=== PATIENT | male | born 1955 | race Caucasian/White ===

== ENCOUNTER → 2020-05-09 08:19 | Outpatient (BNVA) | payer OTHER, SELFPAY | PROVIDERS: PCP Internal Medicine; Visit Provider Physician Assistant | DX: Z76.89 Persons encountering health services in other specified circumstances (principal) ==

== ENCOUNTER 2020-07-18 10:25 | Day surgery (SDC) | payer OTHER, SELFPAY ==
[2020-07-12 13:21] VITALS: BMI 28.4
--- NOTE | 2020-07-17 08:29 | HO.ANESPROP2 ---
Documented by User: Adamaris Freeman 07/17/20 08:38 HPI - Anesthesia Eval Consult details Narrative: 64yo M for Colonoscopy PMFSH Active Problems Active Problems: All Active Problems (Updated 07/12/20 @ 13:18 by Esther Echevarria) Mild asthma (Acute) Diabetes (Acute) HTN (hypertension) (Acute) Encounter for screening colonoscopy (Acute) Past Medical History Medical History Diabetes Encounter for screening colonoscopy HTN (hypertension) Mild asthma Family History Family History Father CVD (cardiovascular disease) Mother Pulmonary edema Sister Breast cancer Diabetes CVD (cardiovascular disease) Hypertension Surgical History Surgical History History of tonsillectomy Hx laparoscopic cholecystectomy Social History Social History Household Members: Spouse Alcohol intake: never Smoking Status: Never smoker Use of substances other than those prescribed or required for medical reasons: No Advance Directives: No Advance Directives Information Provided: No Advance Directives on File: No Current occupational status: disabled Meds Allergies Allergy/AdvReac Type Severity Reaction Status Date / Time enalapril [ENALAPRIL] Allergy Intermediate chills, Verified 05/27/20 09:14 asthma exacerbation Home Medications Medication Instructions Recorded Confirmed Last Taken Type amlodipine 10 mg tablet 10 mg PO DAILY 05/09/20 07/12/20 Unknown History losartan 25 mg tablet 25 mg PO DAILY 05/09/20 05/27/20 Unknown History albuterol sulfate 90 mcg/actuation 2 puff INHALATION Q6H PRN 05/27/20 07/12/20 Unknown History aerosol inhaler Exam Exam Date and Time: July 17, 2020 0829 Height,Weight and Vital Signs: Height 5 ft 11 in Weight 92.533 kg Assessment and Plan Assessment Anesthesia Assessment: Chart Reviewed Documented by User: Zach Valdez 07/18/20 11:11 COUNTS INCLUDE 234 BEDS AT THE [facility] Past Medical History Medical History Diabetes Encounter for screening colonoscopy HTN (hypertension) Mild asthma Family History Family History Father CVD (cardiovascular disease) Mother Pulmonary edema Sister Breast cancer Diabetes CVD (cardiovascular disease) Hypertension Surgical History Surgical History History of tonsillectomy Hx laparoscopic cholecystectomy Social History Social History Household Members: Spouse Alcohol intake: never Smoking Status: Never smoker Use of substances other than those prescribed or required for medical reasons: No Advance Directives: No Advance Directives Information Provided: No Advance Directives on File: No Current occupational status: disabled Meds Allergies Allergy/AdvReac Type Severity Reaction Status Date / Time enalapril [ENALAPRIL] Allergy Intermediate chills, Verified 05/27/20 09:14 asthma exacerbation Home Medications Medication Instructions Recorded Confirmed Last Taken Type amlodipine 10 mg tablet 10 mg PO DAILY 05/09/20 07/12/20 Unknown History losartan 25 mg tablet 25 mg PO DAILY 05/09/20 05/27/20 Unknown History albuterol sulfate 90 mcg/actuation 2 puff INHALATION Q6H PRN 05/27/20 07/12/20 Unknown History aerosol inhaler Exam Airway Mallampati Class: II TM Dist: >3cm Neck ROM: Full Partial: Upper
[2020-07-18 11:18] LABS: Glucose, Whole Blood 141 mg/dL (60-115)
[2020-07-18 11:22] VITALS: BP 169/86; PULSE 87; RESP 18; TEMP 36.8; O2SAT 98
[2020-07-18] MEDS: Lactated Ringers 1,000 ML 100 ML IVCONT (11:28)
--- NOTE | 2020-07-18 11:31 | P.HPSUR_ITS ---
Pre-Procedural Eval Section B Chief Complaint: screening Relevant Family History (Specify if Yes): No Relevant Social History: None Present Medications: see Short Stay Collaborative assessment Medical History: Significant History (Diabetes Encounter for screening colonoscopy HTN (hypertension) Mild asthma) History of Previous Operations: Relevant previous surgery/procedure and date(s) (lap cholecystectomy) Allergies: Allergies Allergy/AdvReac Type Severity Reaction Status Date / Time enalapril [ENALAPRIL] Allergy Intermediate chills, Verified 05/27/20 09:14 asthma exacerbation Review of Systems Sugical H&P ROS: Negative: Constitution, Cardiovascular, Respiratory, Edin rological, Psychiatric, Hem-Onc, Allergic/Immunologic, Gastrointestinal, Genitourinary, Musculoskeletal, Integumentary, Endocrine and Eyes/Ears/Nose/Throat Exam Surgical H&P Exam: Normal: HEENT, Normal: Heart, Normal: Lungs, Normal: Extremities, Normal: Abdomen, Normal: Skin and Normal: Neurological Plan Diagnosis/Plan: Unchanged I have reviewed the history and physical and performed a pertinent physical examination on my patient. No changes have occurred unless specified.
--- NOTE | 2020-07-18 12:11 | PM.OP ---
Brief Operative Note Date of Service: 07/18/20 Pre-op diagnosis: colon screen Post-op diagnosis: same Procedure: see op note Surgeon: Bala Crystal MD Anesthesia: MAC Estimated blood loss (mL): 0 Condition: stable Disposition: PACU
--- NOTE | 2020-07-18 12:12 | P.OP_ITS ---
Operative Note Operative Note Date of Service: 07/18/20 Narrative: Operative Information Procedure Description: Colonoscopy COLONOSCOPY Instrument: Olympus variable stiffness pediatric scope 190L Colonoscopy Monitoring: Vital signs and clinical assessment, continuous EKG monitoring, Pulse oximetry, Carbon Dioxide monitoring and blood pressure monitoring were done throughout the procedure. Colon withdrawal time was 11 minutes. Procedure: The patient was placed in the left lateral decubitis position and pre-procedure medications were administered. After a digital rectal examination of the ano-rectum, the video colonoscope was inserted into the rectum and advanced through the colon to the cecum/TI. The colonoscope was slowly withdrawn in a retrograde panoramic fashion and the colon mucosa was carefully examined including a retroflexed view of the rectum. Findings and interventions are described below. Procedure Difficulty:easy Findings: Terminal Ileum- mild erosive ileitis noted, bx taken Cecum:normal, bx taken Ascending Colon: normal, bx taken Transverse Colon -normal Descending Colon:normal Sigmoid Colon: normal Rectum: Retroflexion with small internal hemorrhoids, grade II Anorectum - internal hemorrhoids seen at anal verge Colon preparation: [employer] Bowel Preparation Scale Right colon; 2 Transverse colon: 3 Left colon; 3 (0 = Unprepared colon segment with mucosa not seen due to solid stool that cannot be cleared. 1 = Portion of mucosa of the colon segment seen, but other areas of the colon segment not well seen due to staining, residual stool and/or opaque liquid. 2 = Minor amount of residual staining, small fragments of stool and/or opaque liquid, but mucosa of colon segment seen well. 3 = Entire mucosa of colon segment seen well with no residual staining, small fragments of stool or opaque liquid) Impression and Post Procedure Diagnosis: internal hemorrhoids terminal ileitis, erosions Plan: High fiber diet leaflet Avoid straining at stool, epsom salts and sitz bath, anusol supps or cream prn Repeat Colonoscopy in 10 years or earlier if clinically indicated check for any sx of crohns, nsaid use, may need further tests incl CTe etc Above findings were reviewed with the patient and relevant handouts were provided if indicated.
[2020-07-18 12:18] VITALS: BP 108/63; PULSE 86; RESP 20; TEMP 37.1; O2SAT 98
[2020-07-18 12:33] VITALS: BP 118/71; PULSE 84; RESP 20; O2SAT 97
[2020-07-18 12:48] VITALS: BP 125/72; PULSE 82; RESP 18; TEMP 37; O2SAT 99
== END 2020-07-18 13:14 | disposition home or self-care (01) ==
PROVIDERS: PCP Internal Medicine; Visit Provider Internal Medicine Gastroenterology
PROC: 0DJD8ZZ Inspection of Lower Intestinal Tract, Via Natural or Artificial Opening Endoscopic (ICD-10-PCS; CPT 45378; principal; 2020-07-18 11:50)
DX: Z12.11 Encounter for screening for malignant neoplasm of colon (principal); K50.00 Crohn's disease of small intestine without complications; K64.1 Second degree hemorrhoids; I10 Essential (primary) hypertension; E11.9 Type 2 diabetes mellitus without complications; J45.909 Unspecified asthma, uncomplicated; Z90.49 Acquired absence of other specified parts of digestive tract; Z79.84 Long term (current) use of oral hypoglycemic drugs; Z79.899 Other long term (current) drug therapy; Z88.8 Allergy status to other drugs, medicaments and biological substances
CPT/HCPCS: 45380; 82947; 88305; J3010

== ENCOUNTER → 2020-07-25 13:04 | Outpatient (BNVA) | payer OTHER, SELFPAY | PROVIDERS: PCP Internal Medicine; Visit Provider Physician Assistant ==

== ENCOUNTER → 2020-08-26 10:35 | Outpatient (BNVA) | payer OTHER, SELFPAY | PROVIDERS: PCP Internal Medicine; Visit Provider Internal Medicine Gastroenterology ==

== ENCOUNTER → 2020-12-30 10:06 | Outpatient (BNVA) | payer OTHER, SELFPAY | PROVIDERS: PCP Internal Medicine; Visit Provider Internal Medicine Gastroenterology ==

== ENCOUNTER 2021-06-11 17:39 | Outpatient (REF) | payer OTHER, SELFPAY ==
[2021-06-11 17:44] LABS: Appearance Urine CLEAR; Color Urine YELLOW; Glucose Urine UA 500 MG/DL (NEG); Leukocyte Esterase Urine NEG (NEG); Nitrite Urine NEG (NEG); PH 6.5 (5.0-8.0); Urine Blood NEG (NEG); Urine Ketones NEG (NEG); Urine Protein NEG (NEG-TRACE)
== END 2021-06-11 17:40 | disposition home or self-care (01) ==
LOC: HO.LNP 17:39
PROVIDERS: Visit Provider Physician Assistant
DX: R10.2 Pelvic and perineal pain (principal); L29.8 Other pruritus; B35.6 Tinea cruris
CPT/HCPCS: 81003

== ENCOUNTER 2021-08-13 08:29 | Outpatient (REF) | payer OTHER, SELFPAY ==
[2021-08-13 08:41] LABS: MANUAL DIFF FLAG NO
[2021-08-13 09:01] LABS: Basophils Absolute Auto 0.1 X10*3/uL (0.0-0.2); Basophils Percent Auto 0.8 % (0-2); Eosinophils Absolute Auto 0.5 X10*3/uL (0.0-0.4); Eosinophils Percent Auto 4.4 % (0-4); Hematocrit 48.3 % (42.0-52.0); Hemoglobin 15.8 g/dl (14.0-18.0); Imm Gran Abs Auto 0.09 X10*3/uL (0.00-0.03); Imm Gran Pct Auto 0.7 % (0.0-0.4); Lymphocytes Absolute Auto 4.1 X10*3/uL (1.2-4.9); Lymphocytes Percent Auto 33.7 % (20-40); Mean Corpuscular HGB Conc 32.7 g/dl (31.0-36.0); Mean Corpuscular Hemoglobin 26.6 pg (27.0-33.0); Mean Corpuscular Volume 81.5 fL (80.0-98.0); Mean Platelet Volume 11.4 fL (9.4-12.4); Monocytes Absolute Auto 0.9 X10*3/uL (0.1-1.2); Monocytes Percent Auto 7.6 % (2-11); Neutrophils Absolute Auto 6.5 x10*3/uL (2.0-8.3); Neutrophils Percent Auto 52.8 % (45-73); Platelet Count 218 X10*3/uL (160-400); Red Blood Count 5.93 X10*6/uL (4.60-5.80); Red Cell Distribution Width 12.5 % (11.0-16.0); White Blood Count 12.3 X10*3/uL (4.8-10.8)
[2021-08-13 09:09] LABS: INTERNATIONAL NORM RATIO 0.9 (0.9-1.1); Prothrombin Time 10.2 SEC (9.9-13.0)
[2021-08-13 09:25] LABS: Alanine Aminotransferase 58 U/L (0-40); Albumin Level 4.3 g/dL (3.5-5.0); Alkaline Phosphatase 77 U/L (39-117); Anion Gap 14 (12-20); Aspartate Amino Transferase 24 U/L (5-37); Bilirubin Total 0.8 mg/dL (0.0-1.0); Blood Urea Nitrogen 19 mg/dL (9-16); Calcium 9.5 mg/dL (8.4-10.2); Carbon Dioxide 27 mmol/L (22-29); Chloride 102 mmol/L (96-108); Estimated Glomerular Filt Rate 58; Glucose Random 192 mg/dL (60-115); Iron 70 mcg/dL (45-160); Percent Iron Saturation 26 % (15-50); Potassium 4.1 mmol/L (3.3-5.1); Sodium 139 mmol/L (135-145); Total Iron Binding Capacity 265 mcg/dL (228-428); Total Protein 7.5 g/dL (6.5-8.0); Unsaturated Iron Binding 195 ug/dL
[2021-08-13 09:46] LABS: Ferritin 501 ng/mL (20-250)
[2021-08-13 09:47] LABS: HBS Num1 0.07 mIU/mL (0-7.99); HBc Num1 0.07 S/CO (0.00-0.79); Hepatitis B Core Antibody Nonreactive (Nonreactive); ~HepC Num1 0.08 S/CO (0.00-0.79); ~Hepatitis B Surface Antibody NONREACTIVE (Nonreactive); ~Hepatitis C Antibody Nonreactive (Nonreactive)
[2021-08-13 09:59] LABS: HBsAGNum1 0.24 S/CO (0.00-0.99); Hepatitis B Surface Antigen Negative (Negative)
[2021-08-14 13:41] LABS: Anti Nuclear Antibody Screen NEGATIVE (NEGATIVE)
[2021-08-15 08:57] LABS: Hepatitis A Antibody IgM 0.32 Index (0-0.79); ~Hepatitis A Antibody IgM Nonreactive (Nonreactive)
[2021-08-15 11:32] LABS: Alpha 1 Anti-trypsin 129 mg/dL (83-199); Ceruloplasmin 20 mg/dL (18-36)
[2021-08-15 13:32] LABS: Immunoglobulin G 1262 mg/dL (600-1540)
[2021-08-15 14:11] LABS: Transglutaminase Ab IgG <1.0 U/mL; Transglutaminase IgA <1.0 U/mL
[2021-08-16 06:02] LABS: Aldolase 8.4 U/L (<=8.1)
[2021-08-17 13:45] LABS: Soluble Liver Ag Autoantibody <20.1 U (0.0-20.0)
[2021-08-17 22:01] LABS: Calprotectin, Fecal 40 mcg/g
[2021-08-19 13:42] LABS: Smooth Muscle Antibody <20 U (<20)
== END 2021-08-13 08:30 | disposition home or self-care (01) ==
LOC: HO.LAB 08:29
PROVIDERS: Visit Provider Internal Medicine Gastroenterology
DX: R79.82 Elevated C-reactive protein (CRP) (principal); K76.0 Fatty (change of) liver, not elsewhere classified; R93.3 Abnormal findings on diagnostic imaging of other parts of digestive tract; K75.81 Nonalcoholic steatohepatitis (NASH); K52.839 Microscopic colitis, unspecified; G89.29 Other chronic pain; R10.33 Periumbilical pain
CPT/HCPCS: 36415; 80053; 82085; 82103; 82390; 82728; 82784; 83520; 83540; 83993; 85025; 85610; 86015; 86038; 86039; 86364; 86704; 86706; 86709; 86803; 87340

== ENCOUNTER → 2021-08-15 10:53 | Outpatient (BNVA) | payer OTHER, SELFPAY | PROVIDERS: PCP Internal Medicine; Visit Provider Internal Medicine Gastroenterology | DX: K52.9 Noninfective gastroenteritis and colitis, unspecified (principal); K50.90 Crohn's disease, unspecified, without complications | CPT/HCPCS: 99212 ==

== ENCOUNTER 2021-08-18 11:57 | Emergency (ER) | payer OTHER, SELFPAY ==
[2021-08-18 13:22] VITALS: BP 183/96; PULSE 85; RESP 17; TEMP 36.8; O2SAT 98; BMI 27.8
[2021-08-18 13:34] LABS: Appearance Urine CLEAR; Color Urine YELLOW; Glucose Urine UA 250 MG/DL (NEG); Leukocyte Esterase Urine NEG (NEG); Nitrite Urine NEG (NEG); PH 5.5 (5.0-8.0); Urine Blood NEG (NEG); Urine Ketones NEG (NEG); Urine Protein NEG (NEG-TRACE)
[2021-08-18 14:13] LABS: RBC Urine 0-2 /HPF (0); Squamous Epithelial Cell Urine TRACE /LPF; WBC Urine 0-2 /HPF (0-4)
--- NOTE | 2021-08-18 19:52 | ED_ITS ---
HPI - Abdominal Pain General Chief Complaint: Abdominal Pain Stated Complaint: Abdominal Pain Time Seen by Provider: 08/18/21 19:52 Source: patient Mode of arrival: ambulatory Limitations: no limitations History of Present Illness HPI narrative: . 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 Patient feels pain in the suprapubic area with frequency in urination without any pain patient diagnosed with prostatitis about 3 weeks ago suppose to take antibiotic for 3 weeks but he took only for 4 days as [facility] no nausea no vomiting no diarrhea no fever no chills Related Data Home Medications Medication Instructions Recorded Confirmed albuterol sulfate 90 mcg/actuation 2 puff INHALATION Q6H PRN 05/27/20 09/10/20 aerosol inhaler Previous Rx's Medication Instructions Recorded losartan 100 1 tab PO DAILY #90 tab 12/30/20 mg-hydrochlorothiazide 12.5 mg tablet fluticasone propionate 50 1 spray INTRANASAL DAILY 30 Days 02/24/21 mcg/actuation nasal #16 g spray,suspension cyclobenzaprine 10 mg tablet 10 mg PO BEDTIME #14 tab 03/25/21 meloxicam 15 mg tablet 15 mg PO DAILY #14 tab 03/25/21 metformin 1,000 mg tablet 1,000 mg PO BID 90 Days #180 tab 05/25/21 cefuroxime axetil 500 mg tablet 500 mg PO Q12H #14 tab 06/11/21 terbinafine HCl 1 % topical cream 1 appl TOPICAL BID #30 g 06/11/21 blood sugar diagnostic (FreeStyle 1 strip MISCELLANEOUS BID #100 06/12/21 Lite Strips) strip fluticasone propionate 110 2 puff PO BID 90 Days #12 g 06/22/21 mcg/actuation HFA aerosol inhaler (Flovent HFA) amlodipine 10 mg tablet 10 mg PO DAILY #90 tab 06/24/21 ciprofloxacin HCl 500 mg tablet 500 mg PO BID #42 tab 08/18/21 (Cipro) Allergies Allergy/AdvReac Type Severity Reaction Status Date / Time enalapril [ENALAPRIL] Allergy Intermediate chills, Verified 08/15/21 11:15 asthma exacerbation Review of Systems Review of Systems Yes all other systems are reviewed and are negative PMFSH Past Medical History Medical History Diabetes Encounter for screening colonoscopy HTN (hypertension) Mild asthma Surgical History H/O colonoscopy History of tonsillectomy Hx laparoscopic cholecystectomy Family History Family History Father CVD (cardiovascular disease) Mother Pulmonary edema Sister Breast cancer Diabetes CVD (cardiovascular disease) Hypertension Social History Social History Household Members: Spouse and Children Alcohol intake: current Alcohol intake frequency: holidays/special occasions o nly Alcohol type: beer Advance Directives: No Advance Directives Information Provided: No Current occupational status: disabled Physical Exam ED Vital Signs: Vital Signs - 24 hr 08/18/21 13:22 Temperature 98.2 F Pulse Rate 85 Respiratory Rate 17 Blood Pressure 183/96 H Pulse Oximetry 98 BMI result Body Mass Index 27.8 Appearance: Alert. Oriented X3. No acute distress. Eyes: No pallor/ icterus ENT: Pharynx normal. Oral Mucosa moist Neck: Normal inspection. Neck supple. CVS: Normal heart rate and rhythm. Pulses normal. Respiratory: No respiratory distress. Equal air entry bilateral, no wheezing/rales/rhonchi Abdomen: Soft and soft tenderness suprapubic area no rebound tenderness or guarding, Bowel sounds are present, no mass palpable, no CVA tenderness Rectal: enlarge prostate slight tenderness Skin: Skin warm and dry. Normal skin color. Normal skin turgor. Extremities: No lower extremity edema. No calf tenderness Neuro: Oriented X 3. MDM - Abdominal Pain MDM Narrative Medical decision making narrative: Patient with stable labs tender prostate on palpation with history of prostatitis in the past will give him p.o. Cipro for 3 weeks advised to follow with urologist Lab Data Attestation: I reviewed the patient's lab results. Result diagrams: 08/18/21 20:01 08/18/21 20:01 Labs: Lab Results 08/18/21 08/18/21 08/18/21 Range/Units 13:27 20:01 20:01 WBC 10.2 (4.8-10.8) X10*3/uL RBC 6.22 H (4.60-5.80) X10*6/uL Hgb 16.4 (14.0-18.0) g/dl Hct 50.6 (42.0-52.0) % MCV 81.4 (80.0-98.0) fL MCH 26.4 L (27.0-33.0) pg MCHC 32.4 (31.0-36.0) g/dl RDW 12.6 (11.0-16.0) % Plt Count 188 (160-400) X10*3/uL MPV 11.1 (9.4-12.4) fL Immature Gran % (Auto) 0.8 H (0.0-0.4) % Neut % (Auto) 62.0 (45-73) % Lymph % (Auto) 28.4 (20-40) % [place] % (Auto) 7.1 (2-11) % Eos % (Auto) 1.1 (0-4) % Baso % (Auto) 0.6 (0-2) % Lymph # (Auto) 2.9 (1.2-4.9) X10*3/uL [place] # (Auto) 0.7 (0.1-1.2) X10*3/uL Eos # (Auto) 0.1 (0.0-0.4) X10*3/uL Baso # (Auto) 0.1 (0.0-0.2) X10*3/uL Abs Immat Gran (auto) 0.08 H (0.00-0.03) X10*3/uL Absolute Neuts (auto) 6.3 (2.0-8.3) x10*3/uL Absolute Nucleated RBC 0.000 (0.0-0.012) X10*3/uL Nucleated RBC % (auto) 0.0 (0.0-0.2) /100WBC Smear Tech's Comments VERIFIED Sodium 141 (135-145) mmol/L Potassium 4.2 (3.3-5.1) mmol/L Chloride 99 (96-108) mmol/L Carbon Dioxide 29 (22-29) mmol/L Anion Gap 17 (12-20) BUN 15 (9-16) mg/dL Creatinine 0.94 (0.5-1.4) mg/dL Estim Creat Clear Calc 91.3 Estimated GFR > 60 Random Glucose 153 H (60-115) mg/dL Lactic Acid (0.5-2.0) mmol/L Calcium 9.7 (8.4-10.2) mg/dL Total Bilirubin 1.2 H (0.0-1.0) mg/dL AST 40 H D (5-37) U/L ALT 88 H (0-40) U/L Alkaline Phosphatase 66 (39-117) U/L Total Protein 8.5 H (6.5-8.0) g/dL Albumin 4.7 (3.5-5.0) g/dL Urine Color YELLOW Urine Appearance CLEAR Urine pH 5.5 (5.0-8.0) Ur Specific [place] 1.020 (1.005-1.025) Urine Protein NEG (NEG-TRACE) MG/DL Urine Glucose (UA) 250 H (NEG) MG/DL Urine Ketones NEG (NEG) MG/DL Urine Blood NEG (NEG) Urine Nitrite NEG (NEG) Ur Leukocyte Esterase NEG (NEG) Urine RBC 0-2 (0) /HPF Urine WBC 0-2 (0-4) /HPF Ur Squamous Epith Cells TRACE /LPF Urine Bacteria NONE /LPF 08/18/21 Range/Units 20:01 WBC (4.8-10.8) X10*3/uL RBC (4.60-5.80) X10*6/uL Hgb (14.0-18.0) g/dl Hct (42.0-52.0) % MCV (80.0-98.0) fL MCH (27.0-33.0) pg MCHC (31.0-36.0) g/dl RDW (11.0-16.0) % Plt Count (160-400) X10*3/uL MPV (9.4-12.4) fL Immature Gran % (Auto) (0.0-0.4) % Neut % (Auto) (45-73) % Lymph % (Auto) (20-40) % [place] % (Auto) (2-11) % Eos % (Auto) (0-4) % Baso % (Auto) (0-2) % Lymph # (Auto) (1.2-4.9) X10*3/uL [place] # (Auto) (0.1-1.2) X10*3/uL Eos # (Auto) (0.0-0.4) X10*3/uL Baso # (Auto) (0.0-0.2) X10*3/uL Abs Immat Gran (auto) (0.00-0.03) X10*3/uL Absolute Neuts (auto) (2.0-8.3) x10*3/uL Absolute Nucleated RBC (0.0-0.012) X10*3/uL Nucleated RBC % (auto) (0.0-0.2) /100WBC Smear Tech's Comments Sodium (135-145) mmol/L Potassium (3.3-5.1) mmol/L Chloride (96-108) mmol/L Carbon Dioxide (22-29) mmol/L Anion Gap (12-20) BUN (9-16) mg/dL Creatinine (0.5-1.4) mg/dL Estim Creat Clear Calc Estimated GFR Random Glucose (60-115) mg/dL Lactic Acid 1.5 (0.5-2.0) mmol/L Calcium (8.4-10.2) mg/dL Total Bilirubin (0.0-1.0) mg/dL AST (5-37) U/L ALT (0-40) U/L Alkaline Phosphatase (39-117) U/L Total Protein (6.5-8.0) g/dL Albumin (3.5-5.0) g/dL Urine Color Urine Appearance Urine pH (5.0-8.0) Ur Specific [place] (1.005-1.025) Urine Protein (NEG-TRACE) MG/DL Urine Glucose (UA) (NEG) MG/DL Urine Ketones (NEG) MG/DL Urine Blood (NEG) Urine Nitrite (NEG) Ur Leukocyte Esterase (NEG) Urine RBC (0) /HPF Urine WBC (0-4) /HPF Ur Squamous Epith Cells /LPF Urine Bacteria /LPF Discharge Plan Discharge Clinical Impression: Acute prostatitis Patient Disposition: Home, Self-Care Instructions: Prostatitis (ED) Additional Instructions: Likely you have prostatitis Take antibiotic as prescribed Follow up with urologist Prescriptions: New ciprofloxacin HCl [Cipro] 500 mg tablet 500 mg PO BID Qty: 42 0RF No Action losartan-hydrochlorothiazide 100-12.5 mg tablet 1 tab PO DAILY Qty: 90 3RF fluticasone propionate 50 mcg/actuation spray,suspension 1 spray intranasal DAILY 30 Days Qty: 16 2RF metformin 1,000 mg tablet 1,000 mg PO BID 90 Days Qty: 180 3RF FreeStyle Lite Strips Strip 1 strip miscellaneous BID Qty: 100 11RF Flovent HFA 110 mcg/actuation HFA aerosol inhaler 2 puff PO BID 90 Days Qty: 12 3RF amlodipine 10 mg tablet 10 mg PO DAILY Qty: 90 3RF albuterol sulfate 90 mcg/actuation HFA aerosol inhaler 2 puff inhalation Q6H PRN (Reason: Shortness Of Breath Or Wheezing) 0RF meloxicam 15 mg tablet 15 mg PO DAILY Qty: 14 0RF cyclobenzaprine 10 mg tablet 10 mg PO BEDTIME Qty: 14 0RF terbinafine HCl 1 % cream 1 appl topical BID Qty: 30 1RF cefuroxime axetil 500 mg tablet 500 mg PO Q12H Qty: 14 0RF
[2021-08-18 20:08] LABS: Mean Corpuscular Volume 81.4 fL (80.0-98.0); PLT CLUMP 1; SCAN SMEAR FLAG 1
[2021-08-18 20:10] LABS: Basophils Absolute Auto 0.1 X10*3/uL (0.0-0.2); Basophils Percent Auto 0.6 % (0-2); Eosinophils Absolute Auto 0.1 X10*3/uL (0.0-0.4); Eosinophils Percent Auto 1.1 % (0-4); Hematocrit 50.6 % (42.0-52.0); Hemoglobin 16.4 g/dl (14.0-18.0); Imm Gran Abs Auto 0.08 X10*3/uL (0.00-0.03); Imm Gran Pct Auto 0.8 % (0.0-0.4); Lymphocytes Absolute Auto 2.9 X10*3/uL (1.2-4.9); Lymphocytes Percent Auto 28.4 % (20-40); MANUAL DIFF FLAG SCAN; Mean Corpuscular HGB Conc 32.4 g/dl (31.0-36.0); Mean Corpuscular Hemoglobin 26.4 pg (27.0-33.0); Mean Platelet Volume 11.1 fL (9.4-12.4); Monocytes Absolute Auto 0.7 X10*3/uL (0.1-1.2); Monocytes Percent Auto 7.1 % (2-11); Neutrophils Absolute Auto 6.3 x10*3/uL (2.0-8.3); Red Blood Count 6.22 X10*6/uL (4.60-5.80); Red Cell Distribution Width 12.6 % (11.0-16.0)
[2021-08-18 20:19] LABS: Lactic Acid 1.5 mmol/L (0.5-2.0)
[2021-08-18 20:23] LABS: Alanine Aminotransferase 88 U/L (0-40); Albumin Level 4.7 g/dL (3.5-5.0); Alkaline Phosphatase 66 U/L (39-117); Anion Gap 17 (12-20); Aspartate Amino Transferase 40 U/L (5-37); Bilirubin Total 1.2 mg/dL (0.0-1.0); Blood Urea Nitrogen 15 mg/dL (9-16); Calcium 9.7 mg/dL (8.4-10.2); Carbon Dioxide 29 mmol/L (22-29); Chloride 99 mmol/L (96-108); Creatinine Clr Calc Pharmacy 91.3; Estimated Glomerular Filt Rate > 60; Glucose Random 153 mg/dL (60-115); Potassium 4.2 mmol/L (3.3-5.1); Sodium 141 mmol/L (135-145); Total Protein 8.5 g/dL (6.5-8.0)
[2021-08-18 20:28] LABS: Platelet Count 188 X10*3/uL (160-400); SLIDE REVIEW VERIFIED; White Blood Count 10.2 X10*3/uL (4.8-10.8)
[2021-08-18 21:38] VITALS: BP 175/98; PULSE 68; RESP 20; TEMP 36.9; O2SAT 97
[2021-08-18] MEDS: levoFLOXacin 500 MG TABLET PO (21:41)
== END 2021-08-18 21:46 | disposition home or self-care (01) ==
PROVIDERS: Emergency Provider Internal Medicine; PCP Internal Medicine
DX: N41.0 Acute prostatitis (principal); E11.9 Type 2 diabetes mellitus without complications; I10 Essential (primary) hypertension
CPT/HCPCS: 36415; 80053; 81001; 83605; 85025; 99283; 99284

== ENCOUNTER 2021-11-16 13:54 | Emergency (ER) | payer MEDICARE, MEDICAID, SELFPAY ==
[2021-11-16 13:57] VITALS: BP 165/86; PULSE 72; RESP 18; TEMP 36.6; O2SAT 99; BMI 27.7
--- NOTE | 2021-11-16 15:15 | ED.GENADULT ---
HPI - General Adult General Chief complaint: Wound/Laceration Stated complaint: head lac Time Seen by Provider: 11/16/21 15:15 Source: patient Mode of arrival: ambulatory Limitations: no limitations History of Present Illness HPI narrative: Patient is a 66 year old male presenting to the emergency department today with a head laceration. Patient states that he attempted to move furniture by himself and scratched his head. Patient denies any loss of consciousness with the incident. Patient states that he does not know when his last tetanus shot was. Patient denies any dizziness, lightheadedness, abdominal pain, nausea, vomiting, fever, chills, blurry vision, double vision, loss of vision, chest pain, difficulty breathing, shortness of breath, back pain, night sweats, pain with urination, increased urinary frequency, increased urinary urgency, blood in his urine or stool, syncope or a near syncopal episode, bowel incontinence, bladder incontinence, bowel retention, bladder retention, or any other complaints at this time. Onset (ago): minute(s) Location: head Radiation: non-radiation Severity: mild Severity scale (1-10): 2 Quality: dull Pain Consistency: constant Relieving factors: none Exacerbating factors: none Associated symptoms: denies other symptoms Treatments prior to arrival: none Related Data Home Medications Medication Instructions Recorded Confirmed albuterol sulfate 90 mcg/actuation 2 puff inhalation Q6H PRN 05/27/20 09/01/21 aerosol inhaler Shortness Of Breath Or Wheezing Previous Rx's Medication Instructions Recorded losartan 100 1 tab PO DAILY #90 tabs 12/30/20 mg-hydrochlorothiazide 12.5 mg tablet metformin 1,000 mg tablet 1,000 mg PO BID 90 days #180 tabs 05/25/21 terbinafine HCl 1 % topical cream 1 appl topical BID #30 grams 06/11/21 blood sugar diagnostic (FreeStyle 1 strip miscellaneous BID #100 06/12/21 Lite Strips) strips amlodipine 10 mg tablet 10 mg PO DAILY #90 tabs 06/24/21 ciprofloxacin HCl 500 mg tablet 500 mg PO BID #42 tabs 08/18/21 (Cipro) fluticasone propionate 50 1 spray intranasal DAILY 30 days 08/29/21 mcg/actuation nasal #16 grams spray,suspension clotrimazole-betamethasone 1 1 appl topical BID 2 weeks #15 09/01/21 %-0.05 % topical cream grams linagliptin 5 mg tablet (Tradjenta) 5 mg PO DAILY 90 days #90 tabs 09/01/21 fluticasone propionate 110 2 puff PO BID 90 days #12 grams 11/02/21 mcg/actuation HFA aerosol inhaler (Flovent HFA) ibuprofen 800 mg tablet 800 mg PO Q8H PRN pain 30 days #90 11/02/21 tabs Allergies Allergy/AdvReac Type Severity Reaction Status Date / Time enalapril [ENALAPRIL] Allergy Intermediate chills, Verified 09/01/21 17:44 asthma exacerbation meloxicam Allergy Rash Verified 11/16/21 14:00 Review of Systems Constitutional: Constitutional: Reports no additional constitutional complaints, Denies chills, Denies fever(s) and Denies night sweats Eyes: Eyes: Reports no additional eye complaints, Denies blurry vision, Denies change in vision, Denies diplopia, Denies eye discharge, Denies loss of vision and Denies eye pain ENT: Denies dizziness Cardiovascular: Cardiovascular: Reports no additional cardiovascular complaints, Denies chest pain, Denies lightheadedness, Denies Loss of Consciousness and Denies dyspnea Respiratory: Respiratory: Reports no additional respiratory complaints and Denies dyspnea Gastrointestinal: Gastrointestinal: Reports no additional gastrointestinal complaints, Denies abdominal pain, Denies melena, Denies hematochezia, Denies change in bowel habits and Denies change in stool character Genitourinary: Genitourinary: Reports no additional male genitourinary complaints, Denies hematuria, Denies oliguria, Denies difficulty urinating, Denies dysuria, Denies urinary frequency, Denies urinary hesitancy, Denies urinary incontinence and Denies urinary urgency Musculoskeletal: Musculoskeletal: Reports no additional musculoskeletal complaints, Denies numbness and Denies tingling Integumentary/Breasts: Comments: head laceration Neurologic: Denies dizziness, Denies loss of vision, Denies numbness and Denies tingling Psychiatric: Psychiatric: Reports no additional psychiatric complaints Endocrine: Endocrine: Reports no additional endocrine complaints Hematologic/Lymphatic: Hematologic/Lymphatic: Reports no additional hematologic/lymphatic complaints Allergic/Immunologic: Allergic/Immunologic: Reports no additional allergic/immunologic complaints PMFSH Past Medical History Attestation statement: The following information was validated with the patient. Source: old records reviewed Medical History Acute prostatitis Diabetes Encounter for screening colonoscopy HTN (hypertension) Mild asthma Surgical History H/O colonoscopy History of tonsillectomy Hx laparoscopic cholecystectomy Family History Family History Father CVD (cardiovascular disease) Mother Pulmonary edema Sister Breast cancer Diabetes CVD (cardiovascular disease) Hypertension Social History Social History Household Members: Spouse and Children Housing: Apartment Alcohol intake: current Alcohol intake frequency: holidays/special occasions only Alcohol type: beer Patient Tobacco Use Status: Never used Tobacco e-Cigarette/Vaping Use: Never Used Second Hand Smoke Exposure: No Advance Directives: No Advance Directives Information Provided: No service: No Current occupational status: disabled Physical Exam ED Vital Signs: Vital Signs - 24 hr 11/16/21 13:57 Temperature 97.8 F Pulse Rate 72 Respiratory Rate 18 Blood Pressure 165/86 H Pulse Oximetry 99 Oxygen Delivery Method Room Air BMI result Body Mass Index 27.7 Const General: cooperative, no acute distress, alert and awake Nutritional Appearance: well nourished Orientation/consciousness: patient oriented x3 Limitations: no limitations HENMT Ears: hearing grossly normal bilaterally and external ears normal General nose exam: Normal external nose present, no nasal discharge noted and no epistaxis Face and sinus: Yes normal facial exam, No abrasion and No laceration Mouth: Normal oral and palatal mucosa present, no drooling and no muffled voice Eyes General: appearance normal, both eyes and all related structures Periorbital: periorbital findings normal Eyelids: Yes eyelids normal Conjunctivae: conjunctivae normal Pupils: Equal, round and reactive pupils present EOM: EOMs intact bilaterally Neck Neck: Yes normal visual inspection, Yes full ROM and Yes no lymphadenopathy Chest Chest palpation & inspection: normal inspection of the chest Resp Effort & Inspection: normal respiratory effort and able to speak in complete sentences Auscultation: clear to auscultation bilaterally Cardio Rate: regular rate Rhythm: regular rhythm GI Inspection: Yes normal to inspection Skin Other: small laceration to the right side of the scalp Neuro General: patient oriented x3 and moves all extremities Cranial nerves: Yes Equal, round and reactive pupils present Cognition (Neuro): normal cognition Motor exam (neuro): 5/5 motor strength present throughout Sensory Exam: Normal double simultaneous stimulation for sensation Coordination: [id number] test normal Extrem General: Yes normal to inspection, Yes full ROM and Yes capillary refill normal Psych Appearance: grossly normal Mental Status: mental status grossly normal Affect: normal affect Attitude: cooperative Thought process: Normal thought process present Thought content: Normal thought content present Insight: Good insight present (Psych) Procedures Laceration Laceration 1: Site: scalp Side (If applicable): right Size (cm): 0.5 Description: flap Depth: simple, single layer Pre-repair: irrigated extensively and deep structures intact Skin layer closed with: other (dermabond) Medical Decision Making MDM Narrative Medical decision making narrative: Patient is a 66 year old male presenting to the emergency department today with a scalp laceration. Patient's physical exam showed a small laceration to the right side of the scalp with no active bleeding or gaping areas. I explained my physical exam findings to the patient and the patient's daughter. I answered all questions asked by the patient and the patient's daughter. Patient was brought up to date on tetanus. Patient's laceration was repaired with dermabond, without incident. I stressed the importance of the patient taking his medication as prescribed. I stressed the importance of the patient following up with his primary care provider. I stressed the importance of the patient returning to the emergency department immediately if his symptoms were to worsen or if he were to develop any dizziness, shortness of breath, difficulty breathing, chest pain, blurry vision, loss of vision, nausea, vomiting, abdominal pain, fever, chills, back pain, or any other complaints. Patient and the patient's daughter verbalized agreement and understanding with this treatment plan and discharge. Differential Diagnosis Differential Diagnosis: Scalp laceration Medical Records Medical records reviewed: Yes I reviewed the patient's medical records. Discharge Plan Discharge Clinical Impression: Laceration of scalp Patient Disposition: Home, Self-Care Instructions: Skin Adhesive Care (ED) Additional Instructions: Do NOT get the repaired area wet. Follow up with your primary care provider. Return to the emergency department immediately if your symptoms worsen or if you develop any dizziness, shortness of breath, difficulty breathing, chest pain, blurry vision, loss of vision, nausea, vomiting, abdominal pain, fever, chills, back pain, or any other complaints. Prescriptions: No Action losartan-hydrochlorothiazide 100-12.5 mg tablet 1 tab PO DAILY Qty: 90 3RF metformin 1,000 mg tablet 1,000 mg PO BID 90 Days Qty: 180 3RF FreeStyle Lite Strips Strip 1 strip miscellaneous BID Qty: 100 11RF amlodipine 10 mg tablet 10 mg PO DAILY Qty: 90 3RF fluticasone propionate 50 mcg/actuation spray,suspension 1 spray intranasal DAILY 30 Days Qty: 16 2RF Flovent HFA 110 mcg/actuation HFA aerosol inhaler 2 puff PO BID 90 Days Qty: 12 3RF ibuprofen 800 mg tablet 800 mg PO Q8H PRN (Reason: pain) 30 Days Qty: 90 0RF ciprofloxacin HCl [Cipro] 500 mg tablet 500 mg PO BID Qty: 42 0RF albuterol sulfate 90 mcg/actuation HFA aerosol inhaler 2 puff inhalation Q6H PRN (Reason: Shortness Of Breath Or Wheezing) terbinafine HCl 1 % cream 1 appl topical BID Qty: 30 1RF Tradjenta 5 mg tablet 5 mg PO DAILY 90 Days Qty: 90 1RF clotrimazole-betamethasone 1-0.05 % cream 1 appl topical BID 14 Days Qty: 15 0RF Referrals: Zulma Pedroza MD [Primary Care Provider] - Print Language: Citizen Of [place]
[2021-11-16] MEDS: Diphth,Pertus(ACell),Tet Adult 0.5 ML SYRINGE IM (16:29)
== END 2021-11-16 16:34 | disposition home or self-care (01) ==
PROVIDERS: Emergency Provider Emergency Medicine; PCP Internal Medicine
DX: S01.01XA Laceration without foreign body of scalp, initial encounter (principal); I10 Essential (primary) hypertension; E11.9 Type 2 diabetes mellitus without complications; X58.XXXA Exposure to other specified factors, initial encounter; Y93.9 Activity, unspecified; Y92.9 Unspecified place or not applicable; Y99.9 Unspecified external cause status
CPT/HCPCS: 12001; 90471; 90715; 99283; 99284

== ENCOUNTER 2022-03-21 14:55 | Outpatient (REF) | payer MEDICARE, MEDICAID, SELFPAY | END 2022-03-21 14:56 | disposition home or self-care (01) | LOC: HO.LAB 14:55 | PROVIDERS: Visit Provider Nurse Practitioner Acute Care | DX: Z13.89 Encounter for screening for other disorder (principal) ==

== ENCOUNTER 2022-04-25 21:51 | Emergency (ER) | payer MEDICARE, MEDICAID, SELFPAY ==
--- NOTE | ~2022-04-25 | CT_ITS ---
EXAMINATION: CT ABDOMEN AND PELVIS WITH CONTRAST CLINICAL INFORMATION: Abdominal pain. Question colitis. COMPARISON: 08/02/2018 TECHNIQUE: Multidetector volumetric images were obtained from the superior aspect of the liver through the pubic symphysis following administration 85 mL of Omnipaque 350 intravenous contrast. Sagittal and coronal reformatted images were obtained on the technologist's workstation. Oral contrast: No This CT examination was performed using dose optimization techniques as appropriate, variously including the following: *Automated exposure control *Adjustment of mA and/or kV according to patient size (this includes techniques or standardized protocols for targeted exams where dose is matched to indication/reason for exam; i.e. extremities or head) *Use of iterative reconstruction technique DLP: 614 mGy-cm FINDINGS: LUNG BASES: The visualized lung bases are unremarkable. LIVER, GALLBLADDER, AND BILIARY TREE: Relative hypoattenuation of the hepatic parenchyma is consistent with steatosis. Liver is normal in size. Hepatic contour is normal. No focal lesions are identified. Gallbladder is surgically absent. No biliary ductal dilatation. PANCREAS: Unremarkable. SPLEEN: Unremarkable. ADRENAL GLANDS: Unremarkable. KIDNEYS AND URETERS: The kidneys are normal in size, shape, and attenuation. No hydronephrosis, hydroureter, or calculi seen. No perinephric stranding. BLADDER: Unremarkable. GASTROINTESTINAL TRACT: Stomach, small bowel, and colon are normal in caliber. No bowel wall thickening or surrounding inflammatory changes. Appendix is normal. No intraperitoneal free fluid or free air. Fecal material is evident throughout the distal ileum. ABDOMINAL WALL: Tiny fat-containing umbilical hernia. No bowel involvement. LYMPH NODES: No adenopathy. VASCULAR: Unremarkable. PELVIC VISCERA: Prostate gland is enlarged, measuring 5.3 cm in diameter with dystrophic central calcifications. OSSEOUS STRUCTURES: Mild osteoarthritis in the hips. Minimal degenerative disc disease in the lumbar spine. No acute osseous findings. CT/CT abdomen pelvis w IV con IMPRESSION: 1. No acute intra-abdominal or intrapelvic abnormalities. No evidence of colitis. Fecal material throughout the distal ileum suggests delayed bowel transit time/fecal stasis. 2. Hepatic steatosis. 3. Prostatomegaly. Fleischner guidelines were followed.
[2022-04-25 22:21] VITALS: BP 187/83; PULSE 88; RESP 16; TEMP 36.6; O2SAT 99; BMI 25.8
[2022-04-25 22:28] LABS: Basophils Absolute Auto 0.1 X10*3/uL (0.0-0.2); Basophils Percent Auto 0.8 % (0-2); Eosinophils Absolute Auto 0.6 X10*3/uL (0.0-0.4); Hematocrit 45.6 % (42.0-52.0); Hemoglobin 15.1 g/dl (14.0-18.0); Imm Gran Abs Auto 0.21 X10*3/uL (0.00-0.03); Imm Gran Pct Auto 1.5 % (0.0-0.4); Lymphocytes Absolute Auto 5.2 X10*3/uL (1.2-4.9); MANUAL DIFF FLAG SCAN; Mean Corpuscular HGB Conc 33.1 g/dl (31.0-36.0); Mean Corpuscular Hemoglobin 26.3 pg (27.0-33.0); Mean Corpuscular Volume 79.4 fL (80.0-98.0); Mean Platelet Volume 10.9 fL (9.4-12.4); Monocytes Absolute Auto 1.1 X10*3/uL (0.1-1.2); Monocytes Percent Auto 7.5 % (2-11); Neutrophils Absolute Auto 7.2 x10*3/uL (2.0-8.3); Neutrophils Percent Auto 50.2 % (45-73); Platelet Count 236 X10*3/uL (160-400); Red Blood Count 5.74 X10*6/uL (4.60-5.80); Red Cell Distribution Width 12.4 % (11.0-16.0); SCAN SMEAR FLAG 1; White Blood Count 14.4 X10*3/uL (4.8-10.8)
[2022-04-25 22:52] LABS: SLIDE REVIEW VERIFIED
[2022-04-25 22:54] LABS: Alanine Aminotransferase 90 U/L (0-40); Albumin Level 4.6 g/dL (3.5-5.0); Alkaline Phosphatase 71 U/L (39-117); Anion Gap 18 (12-20); Aspartate Amino Transferase 33 U/L (5-37); Bilirubin Total 0.7 mg/dL (0.0-1.0); Blood Urea Nitrogen 22 mg/dL (9-16); Calcium 9.5 mg/dL (8.4-10.2); Carbon Dioxide 24 mmol/L (22-29); Chloride 101 mmol/L (96-108); Creatinine Clr Calc Pharmacy 61.8; Estimated Glomerular Filt Rate > 60; Glucose Random 270 mg/dL (60-115); Potassium 3.8 mmol/L (3.3-5.1); Sodium 139 mmol/L (135-145); Total Protein 7.9 g/dL (6.5-8.0)
[2022-04-26 01:18] VITALS: BP 160/92; PULSE 85; RESP 14; TEMP 36.8; O2SAT 98
--- NOTE | 2022-04-26 01:20 | ED_ITS ---
HPI - General Adult General Chief complaint: Abdominal Pain Stated complaint: abdominal pain Time Seen by Provider: 04/26/22 00:17 Source: patient Mode of arrival: ambulatory Limitations: no limitations History of Present Illness HPI narrative: 66-year-old male with past medical history of diabetes and hypertension and asthma presents to ED for lower abdominal suprapubic pain couple of days. Patient denies any dysuria, hematuria, testicular pain, bloody urine. Patient states no fever or chills. Related Data Home Medications Medication Instructions Recorded Confirmed albuterol sulfate 90 mcg/actuation 2 puff inhalation Q6H PRN 05/27/20 12/22/21 aerosol inhaler Shortness Of Breath Or Wheezing Previous Rx's Medication Instructions Recorded metformin 1,000 mg tablet 1,000 mg PO BID 90 days #180 tabs 05/25/21 terbinafine HCl 1 % topical cream 1 appl topical BID #30 grams 06/11/21 amlodipine 10 mg tablet 10 mg PO DAILY #90 tabs 06/24/21 fluticasone propionate 110 2 puff PO BID 90 days #12 grams 11/02/21 mcg/actuation HFA aerosol inhaler (Flovent HFA) blood sugar diagnostic (FreeStyle 1 strip miscellaneous BID 90 days 11/18/21 Lite Strips) #100 strips blood-glucose meter (FreeStyle #1 ea 11/18/21 Lite Meter kit) lancets 28 gauge (FreeStyle #100 ea 11/18/21 Lancets) mupirocin 2 % topical ointment 1 appl topical BID 15 days #22 11/18/21 grams fluticasone propionate 50 1 spray intranasal DAILY 30 days 11/28/21 mcg/actuation nasal #16 grams spray,suspension ibuprofen 800 mg tablet 800 mg PO Q8H PRN pain 30 days #90 12/05/21 tabs blood pressure monitor #1 ea 12/22/21 losartan 100 1 tab PO DAILY #90 tabs 12/26/21 mg-hydrochlorothiazide 12.5 mg tablet linagliptin 5 mg tablet (Tradjenta) 5 mg PO DAILY 90 days #90 tabs 02/27/22 cephalexin 500 mg capsule 500 mg PO BID #14 caps 03/21/22 naproxen 500 mg tablet 500 mg PO BID PRN pain 10 days #20 04/26/22 tabs Allergies Allergy/AdvReac Type Severity Reaction Status Date / Time enalapril [ENALAPRIL] Allergy Intermediate chills, Verified 03/21/22 14:43 asthma exacerbation meloxicam Allergy Rash Verified 03/21/22 14:43 Review of Systems Review of Systems: lower abdominal pain/suprapubic pain Yes all other systems are reviewed and are negative [facility] Past Medical History Medical History Acute prostatitis Diabetes Encounter for screening colonoscopy HTN (hypertension) Mild asthma Surgical History H/O colonoscopy History of tonsillectomy Hx laparoscopic cholecystectomy Family History Family History Father CVD (cardiovascular disease) Mother Pulmonary edema Sister Breast cancer Diabetes CVD (cardiovascular disease) Hypertension Social History Social History Household Members: Spouse and Children Housing: Apartment Alcohol intake: current Alcohol intake frequency: holidays/special occasions only Alcohol type: beer Patient Tobacco Use Status: Never used Tobacco e-Cigarette/Vaping Use: Never Used Second Hand Smoke Exposure: No Advance Directives: No Advance Directives Information Provided: Yes service: No Current occupational status: disabled Cognitive needs: No Hearing needs: No Vision needs: No Physical Exam ED Vital Signs: Vital Signs - 24 hr 04/25/22 22:21 04/26/22 01:18 Temperature 97.8 F 98.2 F Pulse Rate 88 85 Respiratory Rate 16 14 Blood Pressure 187/83 H 160/92 H Pulse Oximetry 99 98 Oxygen Delivery Method Room Air Room Air BMI result Body Mass Index 25.8 Const General: cooperative, healthy appearing, comfortable, no acute distress, well developed, alert, awake and Physically active Orientation/consciousness: oriented to time and patient oriented x3 HENMT Head: Yes normal to inspection, Yes No palpable skull fracture present, Yes normocephalic, Yes atraumatic and No abrasion Eyes General: appearance normal, both eyes and all related structures Neck Neck: Yes normal visual inspection, Yes full ROM, Yes no lymphadenopathy, Yes no meningeal signs, Yes trachea midline, Yes supple, No anterior neck swelling and No tender Chest Chest palpation & inspection: normal inspection of the chest and normal palpation of entire chest wall Resp Effort & Inspection: normal respiratory effort and able to speak in complete sentences Auscultation: clear to auscultation bilaterally Cardio Jugular venous distension: no JVD Heart sounds: S1 normal heart sound present and S2 normal heart sound present GI Inspection: Yes normal to inspection Palpation (GI): Soft to palpation, not firm, Tenderness to palpation present (GI) in the LLQ and suprapubicly, no guarding and not rigid General: No CVA tenderness and Yes no CVA tenderness Back/Spine/Pelvis Back: no CVA tenderness, No CVA tenderness and No back tenderness Skin General skin exam: no rashes or lesions noted and elasticity normal Neuro General: oriented to time, patient oriented x3, gait normal, tone normal and no meningeal signs Cranial nerves: Yes CN's II-XII intact bilaterally Extrem General: Yes normal to inspection and Yes full ROM Psych Appearance: grossly normal, well kempt and not disheveled Course Course Course Narrative: Labs ordered. Which shows elevated white blood cell count. Waiting for urine. CT scan ordered. Reevaluation(s) Reevaluation #1: Sign-out to Dr. Zepeda to follow CT scan Time: 02:43 Reevaluation #2: CT scan came back and shows no oral acute/emergent abdominal etiology. Shows fecal stasis. Went to re-evaluate patient patient is fine and denies any constipation. UA normal. Time: 02:58 Medications Administered Discontinued Medications Generic Name Dose Route Start Last Admin Trade Name Jaylene PRN Reason Stop Dose Admin Iohexol 85 ml 04/26/22 02:14 04/26/22 02:15 Iohexol 350 Mg/Ml 100 Ml Infus..Btl IV 04/26/22 02:15 85 ml ONCE ONE Administration Morphine Sulfate 2 mg 04/26/22 02:44 04/26/22 03:27 Morphine Sulfate 2 Mg/Ml Cartridge IVPUSH 04/26/22 02:45 2 mg ONCE ONE Administration Protocol Medical Decision Making MDM Narrative Medical decision making narrative: FEcal stasis Lab Data Result diagrams: 04/25/22 22:23 04/25/22 22:23 Labs: Lab Results 04/25/22 04/25/22 04/26/22 Range/Units 22:23 22:23 01:32 WBC 14.4 H (4.8-10.8) X10*3/uL RBC 5.74 (4.60-5.80) X10*6/uL Hgb 15.1 (14.0-18.0) g/dl Hct 45.6 (42.0-52.0) % MCV 79.4 L (80.0-98.0) fL MCH 26.3 L (27.0-33.0) pg MCHC 33.1 (31.0-36.0) g/dl RDW 12.4 (11.0-16.0) % Plt Count 236 D (160-400) X10*3/uL MPV 10.9 (9.4-12.4) fL Immature Gran % (Auto) 1.5 H (0.0-0.4) % Neut % (Auto) 50.2 (45-73) % Lymph % (Auto) 36.0 (20-40) % Keith % (Auto) 7.5 (2-11) % Eos % (Auto) 4.0 (0-4) % Baso % (Auto) 0.8 (0-2) % Lymph # (Auto) 5.2 H (1.2-4.9) X10*3/uL Keith # (Auto) 1.1 (0.1-1.2) X10*3/uL Eos # (Auto) 0.6 H (0.0-0.4) X10*3/uL Baso # (Auto) 0.1 (0.0-0.2) X10*3/uL Abs Immat Gran (auto) 0.21 H (0.00-0.03) X10*3/uL Absolute Neuts (auto) 7.2 (2.0-8.3) x10*3/uL Absolute Nucleated RBC 0.000 (0.0-0.012) X10*3/uL Nucleated RBC % (auto) 0.0 (0.0-0.2) /100WBC Smear Tech's Comments VERIFIED Sodium 139 (135-145) mmol/L Potassium 3.8 (3.3-5.1) mmol/L Chloride 101 (96-108) mmol/L Carbon Dioxide 24 (22-29) mmol/L Anion Gap 18 (12-20) BUN 22 H (9-16) mg/dL Creatinine 1.19 (0.5-1.4) mg/dL Estim Creat Clear Calc 61.8 Estimated GFR > 60 Random Glucose 270 H D (60-115) mg/dL Calcium 9.5 (8.4-10.2) mg/dL Total Bilirubin 0.7 (0.0-1.0) mg/dL AST 33 (5-37) U/L ALT 90 H (0-40) U/L Alkaline Phosphatase 71 (39-117) U/L Total Protein 7.9 (6.5-8.0) g/dL Albumin 4.6 (3.5-5.0) g/dL Urine Color Yellow Urine Appearance Clear Urine pH 5.5 (5.0-9.0) Ur Specific Sanderson 1.020 (1.005-1.025) Urine Protein Negative (Neg-Trace) mg/dL Urine Glucose (UA) 500 H (Negative) mg/dL Urine Ketones Negative (Negative) mg/dL Urine Blood Negative (Negative) Urine Nitrite Negative (Negative) Ur Leukocyte Esterase Negative (Negative) Discharge Plan Discharge Clinical Impression: Abdominal pain Patient Disposition: Home, Self-Care Instructions: Abdominal Pain (ED) Additional Instructions: Regrese al servicio de urgencias por cualquier dolor abdominal, n?useas, v?mitos, dolor testicular, disuria, hematuria, sangrado rectal, v?mitos con yunior o cualquier otro s?ntoma preocupante. Tus an?lisis de laboratorio y tomograf?a computarizada en la orina resultaron normales. Por favor, carlyn un seguimiento con el PCP. Prescriptions: New naproxen 500 mg tablet 500 mg PO BID MDD pain PRN (Reason: pain) 10 Days Qty: 20 0RF Rx Instructions: Do not take with any other NSAIDS. No Action metformin 1,000 mg tablet 1,000 mg PO BID 90 Days Qty: 180 3RF amlodipine 10 mg tablet 10 mg PO DAILY Qty: 90 3RF Flovent HFA 110 mcg/actuation HFA aerosol inhaler 2 puff PO BID 90 Days Qty: 12 3RF fluticasone propionate 50 mcg/actuation spray,suspension 1 spray intranasal DAILY 30 Days Qty: 16 2RF ibuprofen 800 mg tablet 800 mg PO Q8H PRN (Reason: pain) 30 Days Qty: 90 0RF losartan-hydrochlorothiazide 100-12.5 mg tablet 1 tab PO DAILY Qty: 90 3RF Tradjenta 5 mg tablet 5 mg PO DAILY 90 Days Qty: 90 1RF albuterol sulfate 90 mcg/actuation HFA aerosol inhaler 2 puff inhalation Q6H PRN (Reason: Shortness Of Breath Or Wheezing) terbinafine HCl 1 % cream 1 appl topical BID Qty: 30 1RF (DME) blood-glucose meter [FreeStyle Lite Meter] Kit See Rx Instructions .Route Qty: 1 0RF Rx Instructions: As directed FreeStyle Lite Strips Strip 1 strip miscellaneous BID 90 Days Qty: 100 1RF mupirocin 2 % ointment 1 appl topical BID 15 Days Qty: 22 0RF (DME) lancets [FreeStyle Lancets] 28 gauge misc See Rx Instructions .ROUTE .MEDSUPPLY Qty: 100 1RF Rx Instructions: As directed cephalexin 500 mg capsule 500 mg PO BID Qty: 14 0RF (DME) blood pressure monitor Kit See Rx Instructions .Route Qty: 1 0RF Rx Instructions: As directed Interventions: ED Discharge Assessment Last Done: 04/26/22 03:37 Discharge Date/Time: 04/26/22 03:39 Print Language: Nepali
[2022-04-26 01:38] LABS: Appearance Urine Clear; Color Urine Yellow; Glucose Urine UA 500 mg/dL (Negative); Leukocyte Esterase Urine Negative (Negative); Nitrite Urine Negative (Negative); PH 5.5 (5.0-9.0); Urine Blood Negative (Negative); Urine Ketones Negative (Negative); Urine Protein Negative (Neg-Trace)
[2022-04-26] MEDS: iohexoL 350 MG/ML 100 ML INFUS..BTL 85 ML IV (02:15)
[2022-04-26] MEDS: Morphine Sulfate 2 MG/ML CARTRIDGE IVPUSH (03:27)
--- NOTE | 2022-04-26 03:32 | PC.NURSE ---
Pt. came in for pressure/pain in lower abdomen. Placed IV for CT w/contrast. Medicated per AUG. Pt. resting in bed. Pt'd dc'd home with for a ride.
== END 2022-04-26 03:39 | disposition home or self-care (01) ==
PROVIDERS: Emergency Provider Student in an Organized Health Care Education/Training Program
DX: R10.30 Lower abdominal pain, unspecified (principal); I10 Essential (primary) hypertension; Z79.899 Other long term (current) drug therapy
CPT/HCPCS: 36415; 74177; 80053; 81003; 85025; 96374; 99284; J2270; Q9967

== ENCOUNTER 2022-05-08 08:13 | Outpatient (REF) | payer MEDICARE, MEDICAID, SELFPAY ==
[2022-05-08 09:24] LABS: Cholesterol 122 mg/dL; HDL Cholesterol 29 mg/dL; LDL Cholesterol Calculated 64 mg/dl; Triglycerides 148 mg/dL
[2022-05-08 09:44] LABS: Vitamin D 25-OH Total 24.8 ng/mL (>30)
[2022-05-08 09:48] LABS: Creatinine Urine 325.03 mg/dL; Microalbum/Creatinine Ratio Ur 8.9 ug/mg cr
[2022-05-08 09:51] LABS: Alanine Aminotransferase 83 U/L (0-40); Albumin Level 4.3 g/dL (3.5-5.0); Alkaline Phosphatase 66 U/L (39-117); Anion Gap 11 (12-20); Aspartate Amino Transferase 38 U/L (5-37); Bilirubin Total 1.6 mg/dL (0.0-1.0); Blood Urea Nitrogen 16 mg/dL (9-16); Calcium 9.3 mg/dL (8.4-10.2); Carbon Dioxide 31 mmol/L (22-29); Chloride 99 mmol/L (96-108); Cholesterol 121 mg/dL; Estimated Glomerular Filt Rate > 60; Glucose Fasting 163 mg/dL (60-99); HDL Cholesterol 28 mg/dL; LDL Cholesterol Calculated 65 mg/dl; PSA,Total (Free>4and<10) 1.62 ng/mL (0.00-4.00); Potassium 4.2 mmol/L (3.3-5.1); Sodium 137 mmol/L (135-145); Total Protein 7.3 g/dL (6.5-8.0); Triglycerides 144 mg/dL
== END 2022-05-08 08:14 | disposition home or self-care (01) ==
LOC: HO.LAB 08:13
PROVIDERS: Nurse Practitioner Family; PCP Internal Medicine; Visit Provider Internal Medicine
DX: Z13.220 Encounter for screening for lipoid disorders (principal); Z12.5 Encounter for screening for malignant neoplasm of prostate; E11.65 Type 2 diabetes mellitus with hyperglycemia; E78.5 Hyperlipidemia, unspecified; E55.9 Vitamin D deficiency, unspecified
CPT/HCPCS: 36415; 80053; 80061; 82043; 82306; 84153

== ENCOUNTER → 2022-06-22 12:59 | Outpatient (BNVA) | payer OTHER, SELFPAY | PROVIDERS: PCP Internal Medicine; Visit Provider Nurse Practitioner Family | DX: N40.0 Benign prostatic hyperplasia without lower urinary tract symptoms (principal) | CPT/HCPCS: 51798; 99202 ==

== ENCOUNTER 2022-07-02 14:05 | Outpatient (REF) | payer OTHER, SELFPAY ==
--- NOTE | ~2022-07-02 | US_ITS ---
EXAMINATION: US PELVIS LIMITED (BLADDER) CLINICAL INFORMATION: Benign prostatic hyperplasia with lower urinary tract symptoms. COMPARISON: CT abdomen and pelvis with contrast 04/26/2022. X-ray abdomen KUB 04/12/2019. MRI abdomen without contrast 11/02/2014. TECHNIQUE: Real-time imaging of the bladder. FINDINGS: BLADDER: Partially distended. Bilateral ureteral jets are demonstrated. Prevoid bladder volume is 107 mL. Postvoid bladder volume is 25.8 mL. ADDITIONAL FINDINGS: The prostate is mildly enlarged and heterogeneous measuring 33.0 mL volume. US/US bladder IMPRESSION: Small postvoid residual bladder volume. heterogeneous and mild prostate enlargement.
== END 2022-07-02 14:06 | disposition home or self-care (01) ==
LOC: HO.US 14:05
PROVIDERS: PCP Internal Medicine; Visit Provider Nurse Practitioner Family
DX: N40.0 Benign prostatic hyperplasia without lower urinary tract symptoms (principal)
CPT/HCPCS: 76857

== ENCOUNTER 2023-03-25 09:52 | Outpatient (AMB) | payer OTHER, SELFPAY ==
[2023-03-25 10:08] VITALS: BP 150/86; PULSE 98; O2SAT 99; BMI 28.6
--- NOTE | 2023-03-25 10:08 | MHC.PC.OV ---
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 that is now painful and growing Foreclosure Field Inspector Required: No Allergies enalapril [ENALAPRIL] Allergy (Intermediate, Verified 03/25/23 10:55) chills, asthma exacerbation meloxicam Allergy (Verified 03/25/23 10:55) Rash Medication List - Last Reconciled 03/25/23 by FRANCISCO FrancoisP albuterol sulfate 90 mcg/actuation 2 puffs inhalation Q6H PRN amlodipine 10 mg PO DAILY blood pressure monitor As directed blood sugar diagnostic (FreeStyle Lite Strips) 1 strip miscellaneous BID 90 days blood sugar diagnostic (OneTouch Ultra Test strips) Use 1 test strip once a day blood-glucose meter ([employer] ProductionsTouch Ultra2 Meter) As directed blood-glucose meter (FreeStyle Lite Meter kit) As directed finasteride 5 mg PO DAILY 90 days fluticasone propionate 50 mcg/actuation 1 spray intranasal DAILY 30 days fluticasone propionate 110 mcg/actuation (Flovent HFA) 2 puffs PO BID 90 days ibuprofen 800 mg PO Q8H PRN 30 days lancets (FreeStyle Lancets) As directed lancets (OneTouch UltraSoft 2 Lancet) Use 1 lancet once a day linagliptin (Tradjenta) 5 mg PO DAILY 90 days losartan-hydrochlorothiazide 100-12.5 mg 1 tab PO DAILY metformin 1,000 mg PO BID 90 days mupirocin 2% 1 appl topical BID 15 days naproxen 500 mg PO BID PRN 10 days MDD pain tamsulosin (Flomax) 0.4 mg PO BEDTIME 90 days terbinafine HCl 1% 1 appl topical BID Tobacco use date assessed: 03/25/23 Fall risk assessment: No Falls in past year Last assessed Fall Risk: 03/25/23 Dental Screening Dental Screen Date: 03/25/23 Did you have a dental visit in the last 12 months?: No Did you have a dental problem in the last 6 months where you did not have access to dental care?: No HPI Painful skin tag on nose HPI Details Patient is a 67-year-old male who presents today with a painful skin tag on his right nare which have been increasing in size for the past 1 year. Patient denies any lesion discharge. He also reports skin tags on his right upper eyelid. No shortness of breath or chest pain. Blood pressure elevated today, he did not take blood pressure medications this morning, patient was encouraged to be compliant with his blood pressure medications. Reports when he checks blood pressures at home they are normal. [facility] Medical History BPH (benign prostatic hyperplasia) Enlarged prostate Acute prostatitis Mild asthma Diabetes HTN (hypertension) Encounter for screening colonoscopy Surgical History H/O colonoscopy History of tonsillectomy Hx laparoscopic cholecystectomy Family History Father CVD (cardiovascular disease) Mother Pulmonary edema Sister Breast cancer Diabetes CVD (cardiovascular disease) Hypertension Social History Household Members: Spouse and Children Housing: Apartment Alcohol intake: current Alcohol intake frequency: holidays/special occasions only Alcohol type: beer Patient Tobacco Use Status: Never used Tobacco e-Cigarette/Vaping Use: Never Used Second Hand Smoke Exposure: No service: No Current occupational status: disabled Cognitive needs: No Hearing needs: No Vision needs: Yes Questionnaire PHQ-9 Over the last 2 weeks, how often have you been bothered by any of the following problems? 1. Little interest or pleasure in doing things: not at all 2. Feeling down, depressed, or hopeless: not at all 3. Trouble falling or staying asleep, or sleeping too much: not at all 4. Feeling tired or having little energy: not at all 5. Poor appetite or overeating: not at all 6. Feeling bad about yourself - or that you are a failure or have let yourself or your family down: not at all 7. Trouble concentrating on things, such as reading the newspaper or watching television: not at all 8. Moving or speaking so slowly that other people could have noticed. Or the opposite - being so fidgety or restless that you have been moving around a lot more than usual: not at all 9. Thoughts that you would be better off or of hurting yourself in some way: not at all Total score: 0 Depression Screening Interpretation: Negative Depression Screening Done: Yes 71935 - PHQ-9 Billing: Yes Source: Developed by Drs. Franky Díaz, Kinsey Jiménez, Hussein Harley and colleagues, with an educational mary from [employer]. Thrive Questionnaire Date Thrive assessed: 05/05/22 AUDIT C Alcohol Use Questionnaire (AUDIT-C) 1. How often do you have a drink containing alcohol?: Monthly or less 2. How many drinks containing alcohol do you have on a typical day when you are drinking?: 1 or 2 3. How often do you have six or more drinks on one occasion?: Never Total Score: 1 Score Reviewed/Action Taken: No ROSENDO-7 AMB Questionnaire ROSENDO-7 Date ROSENDO - 7 assessed: 03/25/23 Feeling nervous, anxious, or on edge: 0 = Not at all Not being able to stop or control worryin = Not at all Worrying too much about different things: 0 = Not at all Trouble relaxin = Not at all Being so restless that it is hard to sit still: 0 = Not at all Becoming easily annoyed or irritable: 0 = Not at all Feeling afraid as if something awful might happen: 0 = Not at all Total ROSENDO-7 score (0-4 normal; 5-9 mild; 10-14 moderate; 15-21 severe): 0 Source: Developed by Drs. Franky Díaz, Kinsey Jiménez, Hussein Harley and colleagues, with an educational mary from [employer]. ROSENDO-7 Assessment Billing ROSENDO-7 Assessment Tool: ROSENDO-7 Assessment 80682 Review of Systems Const Denies body aches, Denies chills, Denies fever(s) and Denies headache(s) ENT Denies dizziness, Denies otalgia, Denies headache(s), Denies nasal discharge, Denies sinus pain and Denies sore throat Card Denies chest pain, Denies edema, Denies lightheadedness and Denies dyspnea Resp Denies cough, Denies dyspnea and Denies wheezing GI Denies abdominal pain Denies dysuria Musc Denies myalgias Skin/Breast Reports as per HPI and Denies rash Neuro Denies dizziness and Denies headache(s) Aller/Immun Denies wheezing Physical exam (Primary Care) Vital Signs: Last Vital Signs Pulse 98 03/25/23 10:08 BP 150/86 H 03/25/23 10:08 Pulse Ox 99 03/25/23 10:08 Oxygen Delivery Method Room Air 03/25/23 10:08 BMI result Body Mass Index 28.6 Tobacco/Smoking Status: Tobacco use Status Tobacco use date assessed 03/25/23 03/25/23 10:09 Patient Tobacco Use Status Never used Tobacco 03/25/23 10:09 e-Cigarette/Vaping Use Never Used 03/25/23 10:09 PHQ-9: PHQ-9 Score PHQ-9: Total score 0 03/25/23 10:40 Depression Screening Interpretation: Negative Thrive Assessment: Date of Thrive Assessment Date Thrive assessed 05/05/22 03/25/23 10:09 Const General: cooperative and no acute distress Orientation/consciousness: patient oriented x3 HENMT Head: Yes normocephalic and Yes atraumatic Throat: Yes posterior oropharynx normal Eyes General: appearance normal, both eyes and all related structures Neck Neck: Yes normal visual inspection and Yes full ROM Resp Effort & Inspection: normal respiratory effort and able to speak in complete sentences Auscultation: clear to auscultation bilaterally, no crackles, no rales, no rhonchi and no wheezes Cardio Rate: regular rate Rhythm: regular rhythm Heart sounds: S1 normal heart sound present and S2 normal heart sound present GI Auscultation: normal bowel sounds Skin Other: Right upper eyelid with multiple small skin tags Right nare raised skin colored area about 7 mm in diameter, patient reports sensitivity to touch, no erythema, no signs of infection noted Neuro General: patient oriented x3 Gait exam (Neuro): Normal gait present Extrem General: Yes full ROM Assessment and Plan Assessment & Plan (1) Skin tag: Code(s): L91.8 - Other hypertrophic disorders of the skin Plan: Dermatology referral for an evaluation and treatment (2) Skin lesion: Code(s): L98.9 - Disorder of the skin and subcutaneous tissue, unspecified Plan: Right nare raised skin colored area about 7 mm in diameter, patient reports sensitivity to touch, no erythema, no signs of infection noted Dermatology referral for an evaluation and treatment Orders: Referrals Dermatology Referral L91.8 - Other hypertrophic disorders of the skin, L98.9 - Disorder of the skin and subcutaneous tissue, unspecified Coding Level of Care Code Est Pt Level 3 (79100) Diagnoses Skin tag L91.8 Skin lesion L98.9 Additional Codes ROSENDO-7 Assessment Billing - ROSENDO-7 Assessment Tool: ROSENDO-7 Assessment 10360 ([id number])
== END 2023-03-25 11:04 | disposition home or self-care (01) ==
PROVIDERS: PCP Internal Medicine; Visit Provider Nurse Practitioner Family
DX: L91.8 Other hypertrophic disorders of the skin (principal); L98.9 Disorder of the skin and subcutaneous tissue, unspecified; E11.65 Type 2 diabetes mellitus with hyperglycemia
CPT/HCPCS: 99213

== ENCOUNTER 2023-05-24 08:35 | Outpatient (AMB) | payer OTHER, SELFPAY ==
[2023-05-24 08:37] VITALS: BP 148/90; BMI 28.6
--- NOTE | 2023-05-24 08:37 | MHC.PC.OV ---
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 Accompanied by: Self / Same As Patient Allergies enalapril [ENALAPRIL] Allergy (Intermediate, Verified 05/24/23 08:38) chills, asthma exacerbation meloxicam Allergy (Verified 05/24/23 08:38) Rash Medication List - Last Reconciled 05/24/23 by Zulma Almaraz MD albuterol sulfate 90 mcg/actuation 2 puffs inhalation Q6H PRN amlodipine 10 mg PO DAILY blood pressure monitor As directed blood sugar diagnostic (FreeStyle Lite Strips) 1 strip miscellaneous BID 90 days blood sugar diagnostic (OneTouch Ultra Test strips) Use 1 test strip once a day blood-glucose meter (OneTouch Ultra2 Meter) As directed blood-glucose meter (FreeStyle Lite Meter kit) As directed finasteride 5 mg PO DAILY 90 days fluticasone propionate 50 mcg/actuation 1 spray intranasal DAILY 30 days fluticasone propionate 110 mcg/actuation (Flovent HFA) 2 puffs PO BID 90 days hydrocortisone 2.5% 1 appl topical BID PRN ibuprofen 800 mg PO Q8H PRN 30 days lancets (FreeStyle Lancets) As directed lancets (OneTouch UltraSoft 2 Lancet) Use 1 lancet once a day linagliptin (Tradjenta) 5 mg PO DAILY 90 days losartan-hydrochlorothiazide 100-12.5 mg 1 tab PO DAILY metformin 1,000 mg PO BID 90 days tamsulosin (Flomax) 0.4 mg PO BEDTIME 90 days terbinafine HCl 1% 1 appl topical BID Tobacco use date assessed: 03/25/23 Fall risk assessment: No Falls in past year Last assessed Fall Risk: 05/24/23 Dental Screening Dental Screen Date: 05/24/23 Did you have a dental visit in the last 12 months?: Yes Did you have a dental problem in the last 6 months where you did not have access to dental care?: No Was dental information given to patient?: Patient has dentist HPI HPI Comments History of Present Illness Details This is a 67-year-old male with diabetes mellitus type 2 that comes for his physical exam. A1c elevated I will add Jardiance. Last diabetic eye exam was April 2023. Last colonoscopy was March 2023. No chest pain or shortness of breath. Blood pressure elevated and will be recheck in 3 weeks by nurse navigator. Hydrochlorothiazide was increased from 12.5 mg to 25 mg. [facility] Medical History (Updated 05/24/23 @ 09:51 by Zulma Almaraz MD) BPH (benign prostatic hyperplasia) Enlarged prostate Acute prostatitis Mild asthma Diabetes HTN (hypertension) Encounter for screening colonoscopy Surgical History H/O colonoscopy History of tonsillectomy Hx laparoscopic cholecystectomy Family History Father CVD (cardiovascular disease) Mother Pulmonary edema Sister Breast cancer Diabetes CVD (cardiovascular disease) Hypertension Social History Household Members: Spouse and Children Housing: Apartment Alcohol intake: current Alcohol intake frequency: holidays/special occasions only Alcohol type: beer Patient Tobacco Use Status: Never used Tobacco e-Cigarette/Vaping Use: Never Used Second Hand Smoke Exposure: No service: No Current occupational status: disabled Cognitive needs: No Hearing needs: No Vision needs: Yes Questionnaire Thrive Questionnaire Date Thrive assessed: 05/05/22 ROSENDO-7 AMB Questionnaire ROSENDO-7 Date ROSENDO - 7 assessed: 03/25/23 Source: Developed by Drs. Franky Díaz, Kinsey Jmiénez, Hussein Harley and colleagues, with an educational mary from [employer]. Review of Systems Const All systems reviewed & are unremarkable except as noted in HPI and below Eyes Reports no additional complaints, Denies change in vision and Denies other visual disturbances Card Denies chest pain at rest, Denies chest pain with activity, Denies edema, Denies irregular heart rhythm, Denies claudication, Denies dyspnea, Denies dyspnea on exertion, Denies orthopnea, Denies paroxysmal nocturnal dyspnea and Denies slow heart rate Resp Denies cough, Denies dyspnea and Denies dyspnea on exertion GI Denies abdominal pain, Denies change in bowel habits, Denies excessive flatus, Denies nausea and Denies vomiting Denies urinary hesitancy, Denies urinary incontinence and Denies urinary urgency Musc Denies abnormal gait, Denies atrophy, Denies deformity and Denies limited range of motion Skin/Breast Denies bleeding lesions, Denies changing lesions and Denies rash Neuro Denies abnormal gait, Denies behavioral changes, Denies confusion and Denies lack of coordination Psych Denies behavioral changes and Denies confusion Physical exam (Primary Care) Vital Signs: Last Vital Signs BP 150/90 H 05/24/23 09:00 BMI result Body Mass Index 28.6 Tobacco/Smoking Status: Tobacco use Status Tobacco use date assessed 03/25/23 05/24/23 08:39 Patient Tobacco Use Status Never used Tobacco 05/24/23 08:39 e-Cigarette/Vaping Use Never Used 05/24/23 08:39 Thrive Assessment: Date of Thrive Assessment Date Thrive assessed 05/05/22 05/24/23 08:39 Const General: No confusion Orientation/consciousness: patient oriented x3 and No confusion HENMT Head: Yes normal to inspection, Yes normocephalic and Yes atraumatic Ears: external ears normal Eyes General: appearance normal, both eyes and all related structures Eyelids: Yes eyelids normal Conjunctivae: conjunctivae normal Neck Neck: Yes normal visual inspection and Yes supple Resp Effort & Inspection: normal respiratory effort Auscultation: clear to auscultation bilaterally Cardio Jugular venous distension: no JVD Rate: regular rate Rhythm: regular rhythm Heart sounds: S1 normal heart sound present and S2 normal heart sound present GI Inspection: Yes normal to inspection Palpation (GI): Soft to palpation and nontender Auscultation: normal bowel sounds Skin General skin exam: no rashes or lesions noted Neuro General: patient oriented x3, no focal motor deficits and No confusion Extrem General: Yes full ROM Psych Appearance: grossly normal Office Procedures Flu Questionnaire Does the patient have a severe egg allergy?: No Results AMB Hemoglobin A1c AMB Hemoglobin A1c 8.8 % Last Edit by ALFRED Payne on 05/24/23 08:51 Immunizations flu vacc [id number] 6mos up(PF) 60 mcg(15 mcgx4)/0.5 mL IM syringe Performing Provider: Zulma Almaraz MD Performing Location: [facility] Documented (not given) by: ALFRED Payne on 05/24/23 08:51 Reason Not Given: Patient Refused Results Reviewed Results Reviewed: Laboratory Last Values Hgb A1c (Clinic) 8.8 % (4.0-6.0) H 05/24/23 08:50 Assessment and Plan Assessment & Plan (1) Physical exam: Code(s): Z00.00 - Encounter for general adult medical examination without abnormal findings Plan: Repeat in a year. (2) Diabetes: Comment: NIDDM FBS usually 125-142 Code(s): E11.9 - Type 2 diabetes mellitus without complications Qualifiers: Diabetes mellitus type: type 2 Diabetes mellitus residential insulin use: without long term care social worker use Diabetes mellitus complication status: with hyperglycemia Qualified Code(s): E11.65 - Type 2 diabetes mellitus with hyperglycemia Plan: Continue metformin and Tradjenta. Start Jardiance. A1c goal is equal or less than 7%. Orders: Orders AMB Hemoglobin A1c Today E11.9 - Type 2 diabetes mellitus without complications Influenza [id number] Immunization Today Z23 - Encounter for immunization Medications: New losartan-hydrochlorothiazide 100-25 mg 1 tab PO DAILY 90 tabs 1RF 90 days empagliflozin (Jardiance) 10 mg PO DAILY 90 tabs 1RF 90 days Discontinued losartan-hydrochlorothiazide 100-12.5 mg Discontinued Reason: Patient Completed Course 1 tab PO DAILY 90 tabs 3RF Coding Level of Care Code Est Pt Prev Care >65y(07710) Diagnoses Physical exam Z00.00 Type 2 diabetes mellitus with hyperglycemia, without long-term current use of insulin E11.65 Diabetes mellitus type: type 2 Diabetes mellitus long term care social worker insulin use: without long term care social worker use Diabetes mellitus complication status: with hyperglycemia Time Spent (min) 34
[2023-05-24 09:00] VITALS: BP 150/90
== END 2023-05-24 09:03 | disposition home or self-care (01) ==
PROVIDERS: Visit Provider Internal Medicine
DX: Z00.00 Encounter for general adult medical examination without abnormal findings (principal); E11.65 Type 2 diabetes mellitus with hyperglycemia; E11.9 Type 2 diabetes mellitus without complications
CPT/HCPCS: 83036; 99397

== ENCOUNTER 2023-09-23 07:57 | Outpatient (AMB) | payer OTHER, SELFPAY ==
[2023-09-23 08:01] VITALS: BP 160/80; BMI 28.6
--- NOTE | 2023-09-23 08:01 | MHC.PC.OV ---
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 Required: No Accompanied by: Self / Same As Patient Allergies enalapril [ENALAPRIL] Allergy (Intermediate, Verified 09/23/23 08:22) chills, asthma exacerbation meloxicam Allergy (Verified 09/23/23 08:22) Rash Medication List - Last Reconciled 09/23/23 by Zulma Almaraz MD albuterol sulfate 90 mcg/actuation 2 puffs inhalation Q6H PRN amlodipine 10 mg PO DAILY blood pressure monitor As directed blood sugar diagnostic (FreeStyle Lite Strips) 1 strip miscellaneous BID 90 days blood sugar diagnostic (OneTouch Ultra Test strips) Use 1 test strip once a day blood-glucose meter (OneTouch Ultra2 Meter) As directed blood-glucose meter (FreeStyle Lite Meter kit) As directed empagliflozin (Jardiance) 10 mg PO DAILY 90 days finasteride 5 mg PO DAILY 90 days fluticasone propionate 50 mcg/actuation 1 spray intranasal DAILY 30 days fluticasone propionate 110 mcg/actuation (Flovent HFA) 2 puffs PO BID 90 days ibuprofen 800 mg PO Q8H PRN 30 days lancets (FreeStyle Lancets) As directed lancets (OneTouch UltraSoft 2 Lancet) Use 1 lancet once a day linagliptin (Tradjenta) 5 mg PO DAILY 90 days losartan-hydrochlorothiazide 100-25 mg 1 tab PO DAILY 90 days metformin 1,000 mg PO BID 90 days Tobacco use date assessed: 09/23/23 Fall risk assessment: 1 Fall in past year Last assessed Fall Risk: 09/23/23 Dental Screening Dental Screen Date: 09/23/23 Did you have a dental visit in the last 12 months?: Yes Did you have a dental problem in the last 6 months where you did not have access to dental care?: No Was dental information given to patient?: Patient has dentist HPI HPI Comments History of Present Illness Details This is a 68-year-old male with diabetes mellitus type 2, hypertension, mild asthma and BPH that comes today for follow-up on his conditions. A1c has improved but still not on goal and I will increase Jardiance from 10 mg to 25 mg. He will continue Tradjenta and metformin. Blood pressure elevated and will be recheck in 3 weeks by nurse navigator. Use rescue inhaler about twice a month and Flovent has been discontinue and I will start him on Arnuity. On finasteride for his BPH. Last diabetic eye exam was April 2023 and as per patient showed no diabetic retinopathy. Complains of a skin lesion would like to see Dermatology. [facility] Medical History (Updated 05/24/23 @ 09:51 by Zulma Almaraz MD) BPH (benign prostatic hyperplasia) Enlarged prostate Acute prostatitis Mild asthma Diabetes HTN (hypertension) Encounter for screening colonoscopy Surgical History H/O colonoscopy History of tonsillectomy Hx laparoscopic cholecystectomy Family History Father CVD (cardiovascular disease) Mother Pulmonary edema Sister Breast cancer Diabetes CVD (cardiovascular disease) Hypertension Social History Household Members: Spouse and Children Housing: Apartment Alcohol intake: current Alcohol intake frequency: holidays/special occasions only Alcohol type: beer Patient Tobacco Use Status: Never used Tobacco e-Cigarette/Vaping Use: Never Used Second Hand Smoke Exposure: No service: No Current occupational status: disabled Cognitive needs: No Hearing needs: No Vision needs: Yes Questionnaire PHQ-9 Over the last 2 weeks, how often have you been bothered by any of the following problems? 1. Little interest or pleasure in doing things: not at all 2. Feeling down, depressed, or hopeless: not at all 3. Trouble falling or staying asleep, or sleeping too much: not at all 4. Feeling tired or having little energy: not at all 5. Poor appetite or overeating: not at all 6. Feeling bad about yourself - or that you are a failure or have let yourself or your family down: not at all 7. Trouble concentrating on things, such as reading the newspaper or watching television: not at all 8. Moving or speaking so slowly that other people could have noticed. Or the opposite - being so fidgety or restless that you have been moving around a lot more than usual: not at all 9. Thoughts that you would be better off or of hurting yourself in some way: not at all Total score: 0 Depression Screening Interpretation: Negative Depression Screening Done: Yes 94564 - PHQ-9 Billing: Yes Source: Developed by Drs. Franky Díaz, Kinsey Jiménez, Hussein Harley and colleagues, with an educational mary from [email or web address]. Thrive Questionnaire Date Thrive assessed: 09/23/23 I am a: Patient What is your living situation today?: I have a steady place to live Within the past 12 months, did the food you bought not last and you didn't have the money to get more?: Never true Within the past 12 months, did you worry whether your food would run out before you got money to buy more?: Never true Do you have trouble paying for medicines?: No Do you have trouble getting transportation to medical appointments?: No Do you have trouble paying your heating and electricity bill?: No Do you have trouble taking care of your child, family member or friend?: No Do you have trouble with day-to-day activities such as bathing, preparing meals, shopping, managing finances, etc.?: No Are you currently unemployed and looking for a job?: No Are you interested in more education?: No Please select the resources that you would like help with: None Currently or been in a relationship where the following occur: no concerns reported THRIVE Score: 0 AUDIT C Alcohol Use Questionnaire (AUDIT-C) 1. How often do you have a drink containing alcohol?: Monthly or less 2. How many drinks containing alcohol do you have on a typical day when you are drinking?: 1 or 2 3. How often do you have six or more drinks on one occasion?: Never Total Score: 1 Score Reviewed/Action Taken: No ROSENDO-7 AMB Questionnaire ROSENDO-7 Date ROSENDO - 7 assessed: 09/23/23 Feeling nervous, anxious, or on edge: 0 = Not at all Not being able to stop or control worryin = Not at all Worrying too much about different things: 0 = Not at all Trouble relaxin = Not at all Being so restless that it is hard to sit still: 0 = Not at all Becoming easily annoyed or irritable: 0 = Not at all Feeling afraid as if something awful might happen: 0 = Not at all Total ROSENDO-7 score (0-4 normal; 5-9 mild; 10-14 moderate; 15-21 severe): 0 Source: Developed by Drs. Franky Díaz, Kinsey Jiménez, Hussein Harley and colleagues, with an educational mary from [email or web address]. ROSENDO-7 Assessment Billing ROSENDO-7 Assessment Tool: ROSENDO-7 Assessment 97658 Review of Systems Skin/Breast Reports lesions Physical exam (Primary Care) Vital Signs: Last Vital Signs BP 160/80 H 09/23/23 08:01 BMI result Body Mass Index 28.6 Tobacco/Smoking Status: Tobacco use Status Tobacco use date assessed 09/23/23 09/23/23 08:10 Patient Tobacco Use Status Never used Tobacco 09/23/23 08:02 e-Cigarette/Vaping Use Never Used 09/23/23 08:02 PHQ-9: PHQ-9 Score PHQ-9: Total score 0 09/23/23 08:10 Depression Screening Interpretation: Negative Thrive Assessment: Date of Thrive Assessment Date Thrive assessed 09/23/23 09/23/23 08:10 Currently or been in a relationship where the following occur: no concerns reported Skin Lesions: lesion noted Results AMB Hemoglobin A1c AMB Hemoglobin A1c 7.4 % Last Edit by ALFRED Payne on 09/23/23 08:11 Results Reviewed Results Reviewed: Laboratory Last Values Hgb A1c (Clinic) 7.4 % (4.0-6.0) H 09/23/23 08:02 Assessment and Plan Assessment & Plan (1) Diabetes: Comment: NIDDM FBS usually 125-142 Code(s): E11.9 - Type 2 diabetes mellitus without complications Qualifiers: Diabetes mellitus type: type 2 Diabetes mellitus skilled nursing insulin use: without skilled nursing use Diabetes mellitus complication status: with hyperglycemia Qualified Code(s): E11.65 - Type 2 diabetes mellitus with hyperglycemia Plan: Continue metformin and Tradjenta. Increase Jardiance to 25 mg once a day. A1c goal is equal or less than 7%. (2) HTN (hypertension): Code(s): I10 - Essential (primary) hypertension Qualifiers: Hypertension type: essential hypertension Qualified Code(s): I10 - Essential (primary) hypertension Plan: Continue losartan-hydrochlorothiazide and amlodipine. Recheck blood pressure with nurse navigator in 3 weeks. Was advised to take blood pressure at home at least 3 times a week and keep a diary. Blood pressure goal is equal or less than 130/80. (3) Mild asthma: Code(s): J45.909 - Unspecified asthma, uncomplicated Qualifiers: Asthma persistence: persistent Asthma complication type: uncomplicated Qualified Code(s): J45.30 - Mild persistent asthma, uncomplicated Plan: Use rescue inhaler as needed. Start Arnuity. (4) BPH (benign prostatic hyperplasia): Code(s): N40.0 - Benign prostatic hyperplasia without lower urinary tract symptoms Plan: Continue finasteride. Orders: Orders AMB Hemoglobin A1c Today E11.65 - Type 2 diabetes mellitus with hyperglycemia Comprehensive [place]. Panel Fast Today E11.65 - Type 2 diabetes mellitus with hyperglycemia Lipid Panel Today E78.5 - Hyperlipidemia, unspecified Microalbumin, Random (w Creat) Today E11.9 - Type 2 diabetes mellitus without complications Medications: New empagliflozin (Jardiance) 25 mg PO DAILY 90 days 90 tabs 1RF E11.65 - Type 2 diabetes mellitus with hyperglycemia fluticasone furoate 50 mcg/actuation (Arnuity Ellipta) 1 inh inhalation Q24H 30 days 30 ea 6RF J45.30 - Mild persistent asthma, uncomplicated Refilled linagliptin (Tradjenta) 5 mg PO DAILY 90 days 90 tabs 1RF amlodipine 10 mg PO DAILY 90 tabs 3RF metformin 1,000 mg PO BID 90 days 180 tabs 3RF E11.65 - Type 2 diabetes mellitus with hyperglycemia losartan-hydrochlorothiazide 100-25 mg 1 tab PO DAILY 90 days 90 tabs 1RF Discontinued empagliflozin (Jardiance) Discontinued Reason: No Longer Medically Relevant 10 mg PO DAILY 90 days 90 tabs 1RF fluticasone propionate 110 mcg/actuation (Flovent HFA) Discontinued Reason: No Longer Medically Relevant 2 puffs PO BID 90 days 12 grams 3RF Coding Level of Care Code Est Pt Level 4 (19646) Diagnoses Type 2 diabetes mellitus with hyperglycemia, without long-term current use of insulin E11.65 Diabetes mellitus type: type 2 Diabetes mellitus salvage determiner insulin use: without skilled nursing use Diabetes mellitus complication status: with hyperglycemia Essential hypertension I10 Hypertension type: essential hypertension Mild persistent asthma without complication J45.30 Asthma persistence: persistent Asthma complication type: uncomplicated BPH (benign prostatic hyperplasia) N40.0 Additional Codes ROSENDO-7 Assessment Billing - ROSENDO-7 Assessment Tool: ROSENDO-7 Assessment [id number] ([id number]) Time Spent (min) 22
[2023-09-23 08:34] VITALS: BP 160/80
== END 2023-09-23 08:31 | disposition home or self-care (01) ==
PROVIDERS: PCP Internal Medicine; Visit Provider Internal Medicine
DX: E11.65 Type 2 diabetes mellitus with hyperglycemia (principal); I10 Essential (primary) hypertension; J45.30 Mild persistent asthma, uncomplicated; N40.0 Benign prostatic hyperplasia without lower urinary tract symptoms
CPT/HCPCS: 83036; 99214

== ENCOUNTER 2023-10-09 13:27 | Outpatient (AMB) | payer OTHER, SELFPAY ==
[2023-10-09 14:03] VITALS: BP 142/82; PULSE 80; TEMP 36.6; O2SAT 97
--- NOTE | 2023-10-09 14:03 | MHC.OFFWIV ---
Intake Vital Signs 10/09/23 14:03 Height 5 ft 9 in BP 142/82 H Blood Pressure Location Rt brachial Position Sitting Pulse 80 Pulse Source Pulse Oximeter Temp 97.8 F Temp Source Temporal Artery Scan Pulse Oximetry (%) 97 Oxygen Delivery Method Room Air Intake Visit Reasons: EP lft eye pain/redness Intake Note: pt is here for left eye pain with redness and sometimes throbbing feeling Patient Tobacco Use Status: Never used Tobacco Allergies enalapril [ENALAPRIL] Allergy (Intermediate, Verified 10/09/23 14:04) chills, asthma exacerbation meloxicam Allergy (Verified 10/09/23 14:04) Rash Do you need a note to return to daycare/school/sports/work: No HPI HPI Comments History of Present Illness Details This is a 68-year-old male with a past medical history of crb-[id number] diabetes and hypertension presenting for evaluation of blurry vision in his left eye that he has had for the past 4 days. Patient states that he first noted a [place] of vision loss in his left eye four days ago which he initially thought was some kind of deposit on his eyeglasses. Patient cleaned his glasses and the central vision loss persisted. Patient describes a ?soreness? when he goes in the sun but denies any corrina photophobia or constant pain. Patient's last ophthalmological exam was in April 2023. Patient denies any injury or trauma to his eye, denies any discharge from the left eye, flashes, floaters, headache, neck pain, confusion or ataxia. Patient's reported fasting blood glucose this morning was 130. [facility] Medical History BPH (benign prostatic hyperplasia) Enlarged prostate Acute prostatitis Mild asthma Diabetes HTN (hypertension) Encounter for screening colonoscopy Surgical History H/O colonoscopy History of tonsillectomy Hx laparoscopic cholecystectomy Family History Father CVD (cardiovascular disease) Mother Pulmonary edema Sister Breast cancer Diabetes CVD (cardiovascular disease) Hypertension Social History Household Members: Spouse and Children Housing: Apartment Alcohol intake: current Alcohol intake frequency: holidays/special occasions only Alcohol type: beer Patient Tobacco Use Status: Never used Tobacco e-Cigarette/Vaping Use: Never Used Second Hand Smoke Exposure: No service: No Current occupational status: disabled Cognitive needs: No Hearing needs: No Vision needs: Yes Review of Systems Const All systems reviewed & are unremarkable except as noted in HPI and below Denies headache(s) and Denies weakness Eyes Reports as per HPI, Reports blind spots, Reports change in vision, Denies diplopia, Denies eye discharge, Denies floaters, Denies itchy eyes, Reports loss of vision (central, left eye) and Reports requires corrective lenses ENT Reports no additional complaints, Reports Normal hearing present, Denies dizziness, Denies headache(s) and Denies disequilibrium Card Reports no additional complaints Resp Reports no additional complaints Musc Reports no additional complaints and Denies abnormal gait Neuro Reports no additional complaints, Reports Normal hearing present, Denies abnormal gait, Denies confusion, Denies dizziness, Denies headache(s), Denies lack of coordination, Denies focal weakness, Reports loss of vision (central, left eye), Denies disequilibrium and Denies weakness Psych Reports no additional complaints and Denies confusion Aller/Immun Denies itchy eyes Physical Exam Vital Signs: Last Vital Signs Temp 97.8 F 10/09/23 14:03 Pulse 80 10/09/23 14:03 BP 142/82 H 10/09/23 14:03 Pulse Ox 97 10/09/23 14:03 Oxygen Delivery Method Room Air 10/09/23 14:03 Const General: cooperative, healthy appearing, comfortable, no acute distress, well developed, alert, awake and Physically active; No acute distress, confusion or lethargic Nutritional Appearance: average body habitus Orientation/consciousness: patient oriented x3, No confusion and No lethargic Limitations: no limitations HEENT Head: Yes normal to inspection Ears: hearing grossly normal bilaterally Face and sinus: Yes normal facial exam Eyes Other: Medial pterygium noted bilaterally, right eye more extensive than left, no conjunctival erythema left eye, no discharge, photophobia or pupil dilation of the left eye. Visual Tierney: normal visual tierney by confrontation Alignment and Position: alignment normal Periorbital: periorbital findings normal Eyelids: Yes eyelids normal Conjunctivae: conjunctivae normal Sclerae: sclerae normal Corneas: corneas normal Pupils: Equal, round and reactive pupils present and not dilated EOM: EOMs intact bilaterally Direct Ophthalmoscopy: no photophobia and fundi normal bilaterally (Nondilated exam) Neuro General: patient oriented x3 and No confusion Cranial nerves: Yes Equal, round and reactive pupils present and Yes Normal hearing present Psych Appearance: grossly normal Mental Status: mental status grossly normal Speech and movement: Normal speech and movement present Affect: normal affect Thought process: Normal thought process present Insight: Good insight present (Psych) Judgement: Good judgement present (Psych) Assessment & Plan Assessment & Plan (1) Vision loss, central: Comment: Patient describes a primarily painless central loss of vision of the left eye for the past 4 days which is unchanged. Patient denies any other neurological symptoms and is neurologically intact on examination. Patient does not have any overt photophobia on examination and unfortunately fluorescein staining is not possible as there is no topical anesthetic available. This does not appear to be an ocular emergency and the patient does not have any symptoms consistent with an acute glaucoma. Patient is instructed to either go to the emergency department today or see his courtroom deputy on Wednesday for further evaluation; patient is encouraged to go to the emergency department directly for any new persisting pain in his left eye. Patient is in agreement with this plan of care. Code(s): H53.419 - [place] involving central area, unspecified eye Qualifiers: Laterality: left Qualified Code(s): H53.412 - [place] involving central area, left eye Plan: Patient must have a dilated eye exam; he is instructed to follow-up with his courtroom deputy on Wednesday for further evaluation and care and go to the emergency department with any evolving or worsening symptoms. Coding Level of Care Code Est Pt Level 3 (98697) Diagnoses [place] involving central area of left eye H53.412 Laterality: left Time Spent (min) 25
== END 2023-10-09 14:31 | disposition home or self-care (01) ==
PROVIDERS: PCP Internal Medicine; Visit Provider Physician Assistant
DX: H53.412 Scotoma involving central area, left eye (principal)
CPT/HCPCS: 99213

== ENCOUNTER 2024-02-02 07:51 | Outpatient (AMB) | payer OTHER, SELFPAY ==
[2024-02-02 07:58] VITALS: BP 152/90; BMI 27.5
--- NOTE | 2024-02-02 07:58 | A.OFFPC_ITS ---
Vital Signs 02/02/24 07:58 02/02/24 09:29 Height 5 ft 9 in Weight 186 lb BMI 27.5 BP 152/90 H 150/90 H Blood Pressure Location Lt brachial Lt brachial Position Sitting Sitting Intake Visit Reasons: 4 Month F/U Intake Note: Patient here for a 4 month follow up DM Ultrasound Supervisor Required: No Accompanied by: Significant Other Allergies enalapril [ENALAPRIL] Allergy (Intermediate, Verified 02/02/24 08:12) chills, asthma exacerbation meloxicam Allergy (Verified 02/02/24 08:12) Rash Medication List - Last Reconciled 02/02/24 by Zulma Almaraz MD albuterol sulfate 90 mcg/actuation 2 puffs inhalation Q6H PRN amlodipine 10 mg PO DAILY blood pressure monitor As directed blood sugar diagnostic (OneTouch Ultra Test strips) Use 1 test strip once a day blood sugar diagnostic (FreeStyle Lite Strips) 1 strip miscellaneous BID 90 days blood-glucose meter (OneTouch Ultra2 Meter) As directed blood-glucose meter (FreeStyle Lite Meter kit) As directed empagliflozin (Jardiance) 25 mg PO DAILY 90 days finasteride 5 mg PO DAILY 90 days fluticasone furoate 50 mcg/actuation (Arnuity Ellipta) 1 inh inhalation Q24H 30 days fluticasone propionate 50 mcg/actuation 1 spray intranasal DAILY 30 days ibuprofen 800 mg PO Q8H PRN 30 days lancets (FreeStyle Lancets) As directed lancets (OneTouch UltraSoft 2 Lancet) Use 1 lancet once a day linagliptin (Tradjenta) 5 mg PO DAILY 90 days losartan-hydrochlorothiazide 100-25 mg 1 tab PO DAILY 90 days metformin 1,000 mg PO BID 90 days Tobacco use date assessed: 09/23/23 Fall risk assessment: No Falls in past year Last assessed Fall Risk: 02/02/24 Dental Screening Dental Screen Date: 09/23/23 HPI HPI Comments History of Present Illness Details This is a 68-year-old male with diabetes mellitus type 2, hypertension, mild asthma and BPH that comes today accompanied by for follow-up on his conditions. A1c has improved and is very close to goal. Blood pressure elevated and his compliant with medications. Blood pressure will be recheck in 3 weeks by nurse navigator. Labs were ordered. He use rescue inhaler less than once every 3 months. BPH stable with finasteride. Denies any chest pain or shortness on breath. No changes in bowel or bladder habits. [facility] Medical History BPH (benign prostatic hyperplasia) Enlarged prostate Acute prostatitis Mild asthma Diabetes HTN (hypertension) Encounter for screening colonoscopy Surgical History H/O colonoscopy History of tonsillectomy Hx laparoscopic cholecystectomy Family History Father CVD (cardiovascular disease) Mother Pulmonary edema Sister Breast cancer Diabetes CVD (cardiovascular disease) Hypertension Social History Household Members: Spouse and Children Housing: Apartment Alcohol intake: current Alcohol intake frequency: holidays/special occasions only Alcohol type: beer Patient Tobacco Use Status: Never used Tobacco e-Cigarette/Vaping Use: Never Used Second Hand Smoke Exposure: No service: No Current occupational status: disabled Cognitive needs: No Hearing needs: No Vision needs: Yes Questionnaire Thrive Questionnaire Date Thrive assessed: 09/23/23 ROSENDO-7 AMB Questionnaire ROSENDO-7 Date ROSENDO - 7 assessed: 09/23/23 Source: Developed by Drs. Franky Díaz, Kinsey Jiménez, Hussein Harley and colleagues, with an educational mary from [employer]. Review of Systems Const All systems reviewed & are unremarkable except as noted in HPI and below Card Denies chest pain at rest, Denies chest pain with activity, Denies edema, Denies irregular heart rhythm, Denies claudication, Denies dyspnea, Denies dyspnea on exertion, Denies orthopnea, Denies paroxysmal nocturnal dyspnea and Denies slow heart rate Resp Denies cough, Denies dyspnea and Denies dyspnea on exertion GI Denies abdominal pain, Denies change in bowel habits, Denies excessive flatus, Denies nausea and Denies vomiting Denies urinary hesitancy, Denies urinary incontinence and Denies urinary urgency Musc Denies abnormal gait, Denies atrophy, Denies deformity and Denies limited range of motion Skin/Breast Denies bleeding lesions, Denies changing lesions and Denies rash Neuro Denies abnormal gait, Denies behavioral changes and Denies lack of coordination Psych Denies behavioral changes Physical exam (Primary Care) Vital Signs: Last Vital Signs BP 152/90 H 02/02/24 07:58 BMI result Body Mass Index 27.5 Tobacco/Smoking Status: Tobacco use Status Tobacco use date assessed 09/23/23 02/02/24 08:01 Patient Tobacco Use Status Never used Tobacco 02/02/24 08:01 e-Cigarette/Vaping Use Never Used 02/02/24 08:01 Thrive Assessment: Date of Thrive Assessment Date Thrive assessed 09/23/23 02/02/24 08:01 Resp Effort & Inspection: normal respiratory effort Auscultation: clear to auscultation bilaterally Cardio Jugular venous distension: no JVD Rate: regular rate Rhythm: regular rhythm Heart sounds: S1 normal heart sound present and S2 normal heart sound present Extrem General: Yes full ROM Results AMB Hemoglobin A1c AMB Hemoglobin A1c 7.2 % Last Edit by ALFRED Payne on 02/02/24 08:0 6 Immunizations pneumoc 20-dwight conj-dip cr(PF) 0.5 mL IM syringe Performing Provider: Zulma Almaraz MD Performing Location: [facility] Administered by: ALFRED Payne on 02/02/24 08:26 Dose Route Admin Location Dispensed Lot Number Expiration Date NDC Power Brake Operator 0.5 mL IM Left Deltoid 0.5 mL [id number] 11/05/24 5881-6607-85 [email or web address] VIS Given Date VIS Provided VIS Publication Date 02/02/24 Single Vaccine 21 Eligibility Eligibility Date Funding Source Not VFC Eligible 02/02/24 Private Results Reviewed Results Reviewed: Laboratory Last Values Hgb A1c (Clinic) 7.2 % (4.0-6.0) H 02/02/24 07:58 Assessment and Plan Assessment & Plan (1) Diabetes: Comment: NIDDM FBS usually 125-142 Code(s): E11.9 - Type 2 diabetes mellitus without complications Qualifiers: Diabetes mellitus type: type 2 Diabetes mellitus care home insulin use: without clinical documentation spec use Diabetes mellitus complication status: with hyperglycemia Qualified Code(s): E11.65 - Type 2 diabetes mellitus with hyperglycemia Plan: Continue metformin, Tradjenta and Jardiance. A1c goal is equal or less than 7%. (2) HTN (hypertension): Code(s): I10 - Essential (primary) hypertension Qualifiers: Hypertension type: essential hypertension Qualified Code(s): I10 - Essential (primary) hypertension Plan: Continue losartan-hydrochlorothiazide. Recheck blood pressure with nurse navigator in few weeks. Continue amlodipine. Blood pressure goal is equal or less than 130/80. (3) Mild asthma: Code(s): J45.909 - Unspecified asthma, uncomplicated Qualifiers: Asthma persistence: persistent Asthma complication type: uncomplicated Qualified Code(s): J45.30 - Mild persistent asthma, uncomplicated Plan: Continue Arnuity. Use rescue inhaler as needed. (4) BPH (benign prostatic hyperplasia): Code(s): N40.0 - Benign prostatic hyperplasia without lower urinary tract symptoms Plan: Continue finasteride. Orders: Orders Lipid Panel Today E78.5 - Hyperlipidemia, unspecified Pneumococcal 20 Immunization Today Z23 - Encounter for immunization AMB Hemoglobin A1c Today E11.65 - Type 2 diabetes mellitus with hyperglycemia Microalbumin, Random (w Creat) Today E11.9 - Type 2 diabetes mellitus without complications Comprehensive [place]. Panel Fast Today E11.65 - Type 2 diabetes mellitus with hyperglycemia Medications: New Ventolin HFA 90 mcg/actuation (albuterol sulfate) 2 puffs inhalation Q6H 30 days PRN 8 grams 0RF shortness of breath or wheezing NS Refilled empagliflozin (Jardiance) 25 mg PO DAILY 90 days 90 tabs 1RF E11.65 - Type 2 diabetes mellitus with hyperglycemia linagliptin (Tradjenta) 5 mg PO DAILY 90 days 90 tabs 1RF ibuprofen 800 mg PO Q8H 30 days PRN 90 tabs 0RF pain amlodipine 10 mg PO DAILY 90 tabs 3RF losartan-hydrochlorothiazide 100-25 mg 1 tab PO DAILY 90 days 90 tabs 1RF metformin 1,000 mg PO BID 90 days 180 tabs 3RF E11.65 - Type 2 diabetes mellitus with hyperglycemia Coding Level of Care Code Est Pt Level 4 (26152) Complex EM visit Add On G2211 Diagnoses Type 2 diabetes mellitus with hyperglycemia, without long-term current use of insulin E11.65 Diabetes mellitus type: type 2 Diabetes mellitus care home insulin use: without clinical documentation spec use Diabetes mellitus complication status: with hyperglycemia Essential hypertension I10 Hypertension type: essential hypertension Mild persistent asthma without complication J45.30 Asthma persistence: persistent Asthma complication type: uncomplicated BPH (benign prostatic hyperplasia) N40.0 Time Spent (min) 23
[2024-02-02 09:29] VITALS: BP 150/90
== END 2024-02-02 08:27 | disposition home or self-care (01) ==
PROVIDERS: PCP Internal Medicine; Visit Provider Internal Medicine
DX: E11.65 Type 2 diabetes mellitus with hyperglycemia (principal); I10 Essential (primary) hypertension; J45.30 Mild persistent asthma, uncomplicated; N40.0 Benign prostatic hyperplasia without lower urinary tract symptoms; Z23 Encounter for immunization
CPT/HCPCS: 83036; 90471; 90677; 99214

== ENCOUNTER 2024-03-06 11:19 | Outpatient (AMB) | payer OTHER, SELFPAY ==
--- NOTE | 2024-03-06 11:21 | MHC.OFFVIS ---
Intake Visit Reasons: 1year follow up/fungal discussion Intake Note: patient is present for 1y f/u fungal discussion Urology Medication:none Blood Thinner: none allergies: none Tacker Off Required: No Accompanied by: Unknown Allergies enalapril [ENALAPRIL] Allergy (Intermediate, Verified 03/06/24 13:04) chills, asthma exacerbation meloxicam Allergy (Verified 03/06/24 13:04) Rash Medication List - Last Reconciled 03/06/24 by NERI Ma- albuterol sulfate 90 mcg/actuation 2 puffs inhalation Q6H PRN amlodipine 10 mg PO DAILY blood pressure monitor As directed blood sugar diagnostic (OneTouch Ultra Test strips) Use 1 test strip once a day blood sugar diagnostic (FreeStyle Lite Strips) 1 strip miscellaneous BID 90 days blood-glucose meter (OneTouch Ultra2 Meter) As directed blood-glucose meter (FreeStyle Lite Meter kit) As directed clotrimazole-betamethasone 1-0.05 % 1 appl topical BID 4 weeks empagliflozin (Jardiance) 25 mg PO DAILY 90 days fluticasone furoate 50 mcg/actuation (Arnuity Ellipta) 1 inh inhalation Q24H 30 days fluticasone propionate 50 mcg/actuation 1 spray intranasal DAILY 30 days ibuprofen 800 mg PO Q8H PRN 30 days lancets (FreeStyle Lancets) As directed lancets (OneTouch UltraSoft 2 Lancet) Use 1 lancet once a day linagliptin (Tradjenta) 5 mg PO DAILY 90 days losartan-hydrochlorothiazide 100-25 mg 1 tab PO DAILY 90 days metformin 1,000 mg PO BID 90 days rosuvastatin 5 mg PO DAILY 90 days tamsulosin 0.4 mg PO BEDTIME 90 days Ventolin HFA 90 mcg/actuation (albuterol sulfate) 2 puffs inhalation Q6H PRN 30 days NS HPI Comments Details: Jhonny is a pleasant 68 year old male patient of who is accompanied by his at todays visit. Patient presents to the office today for follow-up. Of note, patient was seen over a year ago as a new patient for symptoms of benign prostatic hyperplasia at which time a bladder ultrasound was ordered and the patient was started on Flomax and recommendations were made for a 6-8 week follow-up however patient does not recall needing to follow-up. We discussed importance in doing so. In discussion with the patient today he reports feeling Flomax was helpful with episodes of urinary frequency and nocturia he had been experiencing however has since ran out of refills. Bladder ultrasound results reviewed with the patient and his today. The bladder is partially distended. Bladder jets are demonstrated. Pre void bladder volume is approximately 110 mL. Postvoid bladder volume is approximately 25 mL. The prostate is mildly enlarged and heterogeneous measuring 33 mL. PSA results reviewed with the patient today as noted and trended below... PSA: 10/23 1.1, 05/28 1.6 He also reports noting issues with penile itching and redness. In assessment of the patient today the penis is uncircumcised. Upon retraction of penile foreskin mild irritation noted to the head of the penis otherwise no open areas, lesions, and or drainage noted. We discussed proper care as well as balanitis. In office urinalysis results reviewed with the patient today. He denies incontinence, hematuria, dysuria, foul smelling urine, changes to urinary stream, flank pain, fever, and or chills. He otherwise offers no other issues or concerns at this time. [facility] Medical History BPH (benign prostatic hyperplasia) Enlarged prostate Acute prostatitis Mild asthma Diabetes HTN (hypertension) Encounter for screening colonoscopy Surgical History H/O colonoscopy History of tonsillectomy Hx laparoscopic cholecystectomy Family History Father CVD (cardiovascular disease) Mother Pulmonary edema Sister Breast cancer Diabetes CVD (cardiovascular disease) Hypertension Social History Household Members: Spouse and Children Housing: Apartment Alcohol intake: current Alcohol intake frequency: holidays/special occasions only Alcohol type: beer Patient Tobacco Use Status: Never used Tobacco e-Cigarette/Vaping Use: Never Used Second Hand Smoke Exposure: No service: No Current occupational status: disabled Cognitive needs: No Hearing needs: No Vision needs: Yes Review of Systems Const All systems reviewed & are unremarkable except as noted in HPI and below Reports no additional complaints Eyes Reports no additional complaints ENT Reports no additional complaints Card Reports no additional complaints Resp Reports no additional complaints GI Reports no additional complaints Reports as per HPI Musc Reports no additional complaints Neuro Reports no additional complaints Psych Reports no additional complaints Endo Details: Patient reports having Diabetes is on Metformin and diet controlled Jaxson/Lymph Reports no additional complaints Aller/Immun Reports no additional complaints Physical Exam Const General: cooperative, healthy appearing, comfortable, no acute distress, well developed, alert and awake Nutritional Appearance: overweight Orientation/consciousness: patient oriented x3 Limitations: no limitations HEENT Head: Yes normal to inspection, Yes normocephalic and Yes atraumatic Ears: hearing grossly normal bilaterally Eyes General: appearance normal, both eyes and all related structures Neck Neck: Yes normal visual inspection and Yes trachea midline Chest Chest palpation & inspection: normal inspection of the chest Resp Effort & Inspection: normal respiratory effort and able to speak in complete sentences Cardio Rate: regular rate GI Inspection: Yes normal to inspection General: Yes no CVA tenderness Male General Exam: Yes normal external exam Penis: uncircumcised and erythematous Meatus: Erythema at meatus Scrotum: scrotum normal Testes: Testes normal Back/Spine/Pelvis Back: no CVA tenderness Cervical Spine: normal cervical lordosis Neuro General: patient oriented x3 Extrem General: Yes normal to inspection Psych Appearance: grossly normal and well kempt Mental Status: mental status grossly normal Speech and movement: Normal speech and movement present and Clear speech present Affect: normal affect Attitude: cooperative Thought process: Normal thought process present Thought content: Normal thought content present Insight: Fair insight present (Psych) Judgement: Fair judgement present (Psych) Results AMB Urinalysis, Automated UA Leukoctes 0 Miki/uL Last Edit by JUANPABLO Salvador on 03/06/24 11:35 UA Nitrite Negative Last Edit by JUANPABLO Salvador on 03/06/24 11:35 UA Urobilinogen 0.2 mg/dL Last Edit by JUANPABLO Salvador on 03/06/24 11:35 UA Protein 0 mg/dL Last Edit by JUANPABLO Salvador on 03/06/24 11:35 UA pH 6.0 Last Edit by JUANPABLO Salvador on 03/06/24 11:35 UA Blood 0 Jose/uL Last Edit by JUANPABLO Salvador on 03/06/24 11:35 UA Specific [place] 1.010 Last Edit by JUANPABLO Salvador on 03/06/24 11:35 UA Ketone Negative Last Edit by JUANPABLO Salvador on 03/06/24 11:35 UA Bilirubin 0 mg/dL Last Edit by JUANPABLO Salvador on 03/06/24 11:35 UA Glucose 1000 mg/dL Last Edit by JUANPABLO Salvador on 03/06/24 11:35 Quality Reporting (2019) Adult ([facility] 138/07/29/68) Smoking risk assessment performed?: Yes Patient Tobacco Use Status: Never used Tobacco Results Reviewed Results Reviewed: Laboratory Last Values Urine pH (Auto) 6.0 03/06/24 11:34 Specific [place] (Auto) 1.010 03/06/24 11:34 Urine Protein (Auto) 0 mg/dL 03/06/24 11:34 Glucose (UA)(Auto) 1000 mg/dL 03/06/24 11:34 Urine Ketones (Auto) Negative 03/06/24 11:34 Urine Blood (Auto) 0 Jose/uL 03/06/24 11:34 Urine Nitrite (Auto) Negative 03/06/24 11:34 Urine Bilirubin (Auto) 0 mg/dL 03/06/24 11:34 Urine Urobilinogen (Auto) 0.2 mg/dL 03/06/24 11:34 Leukocyte Esterase (Auto) 0 Miki/uL 03/06/24 11:34 Date of Service: 07/02/22 EXAMINATION: US PELVIS LIMITED (BLADDER) FINDINGS: BLADDER: Partially distended. Bilateral ureteral jets are demonstrated. Prevoid bladder volume is 107 mL. Postvoid bladder volume is 25.8 mL. ADDITIONAL FINDINGS: The prostate is mildly enlarged and heterogeneous measuring 33.0 mL volume. IMPRESSION: Small postvoid residual bladder volume. heterogeneous and mild prostate enlargement. Assessment & Plan Assessment & Plan (1) Enlarged prostate: Comment: ABD CT: Prostate gland is enlarged, measuring 5.3 cm in diameter with dystrophic central calcifications. Code(s): N40.0 - Benign prostatic hyperplasia without lower urinary tract symptoms Category: Medical (2) BPH (benign prostatic hyperplasia): Code(s): N40.0 - Benign prostatic hyperplasia without lower urinary tract symptoms Category: Medical (3) Balanitis: Code(s): N48.1 - Balanitis Category: Medical Plan In office urinalysis results reviewed with the patient today; as noted above. Most recent bladder ultrasound results reviewed with the patient today; as noted above. Restart Flomax as discussed and prescribed. Discussed importance of following up as discussed and recommended. Will obtain PSA for further assessment evaluation we discussed possible initiation of finasteride giving an enlarged prostate noted on recent imaging. Discussed proper care of area. Start clotrimazole-betamethasone 1-0.05 % We discussed further treatment options of balanitis. Follow-up in 1-3 months with lab to be completed prior; or sooner with any issues, concerns, and or questions. Orders: Orders AMB Urinalysis Automated Today Z13.9 - Encounter for screening, unspecified Prostate Specific Antigen Today N40.0 - Benign prostatic hyperplasia without lower urinary tract symptoms Medications: New clotrimazole-betamethasone 1-0.05 % Apply thin coat 2 times per day 1 appl topical BID 4 weeks 45 grams 0RF N48.1 - Balanitis tamsulosin 0.4 mg PO BEDTIME 90 days 90 caps 1RF N40.1 - Benign prostatic hyperplasia with lower urinary tract symptoms, R35.1 - Nocturia Patient Instructions: The patient had an opportunity to ask questions regarding the treatment plan. All questions were answered. Physical exam, labs, and imaging were discussed and reviewed in detail. As well as risks, benefits, and discussion of treatment choices. No major barriers to understanding were identified. The patient expressed understanding and agreement with the above treatment plan. The patient was made aware they should contact our office by phone for worsening of their current condition, the appearance of new symptoms, or with any questions or concerns. Compliance is encouraged with any medications and follow up testing that is ordered. It is a privilege to be allowed the opportunity to participate in? your urological care.? Again, if you have any questions or concerns If you have any questions or concerns please do not hesitate to contact me. The office is [phone]. This note is constructed using voice recognition software. While every effort has been made to ensure accuracy teller supervisor errors may have been included. Yours sincerely, Crista Feliciano, APPLICATION SUPPORT INTERN-BC Coding Level of Care Code Est Pt Level 4 (05235) Diagnoses Enlarged prostate N40.0 BPH (benign prostatic hyperplasia) N40.0 Balanitis N48.1
== END 2024-03-06 12:07 | disposition home or self-care (01) ==
PROVIDERS: PCP Internal Medicine; Visit Provider Nurse Practitioner Family
DX: N40.0 Benign prostatic hyperplasia without lower urinary tract symptoms (principal); N48.1 Balanitis; Z13.9 Encounter for screening, unspecified
CPT/HCPCS: 99214

== ENCOUNTER → 2024-03-06 11:19 | Outpatient (BNVA) | payer OTHER, SELFPAY | PROVIDERS: PCP Internal Medicine; Visit Provider Nurse Practitioner Family | DX: N40.0 Benign prostatic hyperplasia without lower urinary tract symptoms (principal); N48.1 Balanitis | CPT/HCPCS: 81003; 99212 ==

== ENCOUNTER 2024-05-05 08:36 | Outpatient (REF) | payer OTHER, SELFPAY ==
[2024-05-05 09:58] LABS: Prostate Specific Antigen 1.34 ng/mL (<0.05-4.0)
== END 2024-05-05 08:37 | disposition home or self-care (01) ==
LOC: HO.LAB 08:36
PROVIDERS: Absent Provider Nurse Practitioner Family; PCP Internal Medicine; Visit Provider Internal Medicine
DX: N40.0 Benign prostatic hyperplasia without lower urinary tract symptoms (principal); Z12.5 Encounter for screening for malignant neoplasm of prostate
CPT/HCPCS: 36415; 84153

== ENCOUNTER 2024-05-08 10:05 | Outpatient (AMB) | payer OTHER, SELFPAY ==
--- NOTE | 2024-05-08 10:27 | A.OFFVIS_ITS ---
Intake Visit Reasons: 2m/PSA/PVR Intake Note: Patient presents today for follow up on: Enlarged Prostate, Balanitis, and PSA lab results PSA: 1.34 Urology Medication: Clotrimazole Cream Blood Thinner: none allergies: none PVR: 63ml's Physician Specialist Required: No Accompanied by: Unknown Allergies enalapril [ENALAPRIL] Allergy (Intermediate, Verified 05/08/24 11:01) chills, asthma exacerbation meloxicam Allergy (Verified 05/08/24 11:01) Rash Medication List - Last Reconciled 05/08/24 by NERI Ma- albuterol sulfate 90 mcg/actuation 2 puffs inhalation Q6H PRN amlodipine 10 mg PO DAILY blood pressure monitor As directed blood sugar diagnostic ([employer] Ultra Test strips) Use 1 test strip once a day blood sugar diagnostic (FreeStyle Lite Strips) 1 strip miscellaneous BID 90 days blood-glucose meter ([employer] Ultra2 Meter) As directed blood-glucose meter (FreeStyle Lite Meter kit) As directed clotrimazole-betamethasone 1-0.05 % 1 appl topical BID 4 weeks empagliflozin (Jardiance) 25 mg PO DAILY 90 days fluticasone furoate 50 mcg/actuation (Arnuity Ellipta) 1 inh inhalation Q24H 30 days fluticasone propionate 50 mcg/actuation 1 spray intranasal DAILY 30 days ibuprofen 800 mg PO Q8H PRN 30 days lancets (FreeStyle Lancets) As directed lancets ([employer] UltraSoft 2 Lancet) Use 1 lancet once a day linagliptin (Tradjenta) 5 mg PO DAILY 90 days losartan-hydrochlorothiazide 100-25 mg 1 tab PO DAILY 90 days metformin 1,000 mg PO BID 90 days rosuvastatin 5 mg PO DAILY 90 days tamsulosin 0.4 mg PO BEDTIME 90 days Ventolin HFA 90 mcg/actuation (albuterol sulfate) 2 puffs inhalation Q6H PRN 30 days NS HPI Comments Details: Jhonny is a pleasant 68 year old male patient of who is accompanied by his at todays visit. Patient presents to the office today for follow-up. Of note, patient was seen approximately 3 months ago at which time he was started on topical steroid for balanitis. In discussion with the patient today reports significant improvement in balanitis. In assessment of the patient today the penis is uncircumcised and upon retraction of penile foreskin no irritation is noted. No open areas, lesions, and or drainage noted. He reports be happy with current voiding parameters on Flomax as he feels this has significantly improved episodes of nocturia. Recent PSA results reviewed with the patient today as noted and trended below. Previous workup included a bladder ultrasound that notes the bladder is partially distended. Bladder jets are demonstrated. Pre void bladder volume is approximately 110 mL. Postvoid bladder volume is approximately 25 mL. The prostate is mildly enlarged and heterogeneous measuring 33 mL. PSA: 10/23 1.1, 05/28 1.6 , 04/30 1.3 In office urinalysis results reviewed with the patient today. PVR 63ml's. He denies incontinence, hematuria, dysuria, foul smelling urine, changes to urinary stream, flank pain, fever, and or chills. Most recent A1c 01/28 7.2. We discussed importance of managing diabetes for improvement in urological health as well as overall health and well-being. He otherwise offers no other issues or concerns at this time. [facility] Medical History BPH (benign prostatic hyperplasia) Enlarged prostate Acute prostatitis Mild asthma Diabetes HTN (hypertension) Encounter for screening colonoscopy Surgical History H/O colonoscopy History of tonsillectomy Hx laparoscopic cholecystectomy Family History Father CVD (cardiovascular disease) Mother Pulmonary edema Sister Breast cancer Diabetes CVD (cardiovascular disease) Hypertension Social History Household Members: Spouse and Children Housing: Apartment Alcohol intake: current Alcohol intake frequency: holidays/special occasions only Alcohol type: beer Patient Tobacco Use Status: Never used Tobacco e-Cigarette/Vaping Use: Never Used Second Hand Smoke Exposure: No service: No Current occupational status: disabled Cognitive needs: No Hearing needs: No Vision needs: Yes Review of Systems Const All systems reviewed & are unremarkable except as noted in HPI and below Reports no additional complaints Eyes Reports no additional complaints ENT Reports no additional complaints Card Reports no additional complaints Resp Reports no additional complaints GI Reports no additional complaints Reports as per HPI Musc Reports no additional complaints Neuro Reports no additional complaints Psych Reports no additional complaints Endo Details: Patient reports having Diabetes is on Metformin and diet controlled Jaxson/Lymph Reports no additional complaints Aller/Immun Reports no additional complaints Physical Exam Const General: cooperative, healthy appearing, comfortable, no acute distress, well developed, alert and awake Nutritional Appearance: overweight Orientation/consciousness: patient oriented x3 Limitations: no limitations HEENT Head: Yes normal to inspection, Yes normocephalic and Yes atraumatic Ears: hearing grossly normal bilaterally Eyes General: appearance normal, both eyes and all related structures Neck Neck: Yes normal visual inspection and Yes trachea midline Chest Chest palpation & inspection: normal inspection of the chest Resp Effort & Inspection: normal respiratory effort and able to speak in complete sentences Cardio Rate: regular rate GI Inspection: Yes normal to inspection General: Yes no CVA tenderness Male General Exam: Yes normal external exam Penis: uncircumcised Meatus: meatus normal Scrotum: scrotum normal Testes: Testes normal Back/Spine/Pelvis Back: no CVA tenderness Cervical Spine: normal cervical lordosis Neuro General: patient oriented x3 Extrem General: Yes normal to inspection Psych Appearance: grossly normal and well kempt Mental Status: mental status grossly normal Speech and movement: Normal speech and movement present and Clear speech present Affect: normal affect Attitude: cooperative Thought process: Normal thought process present Thought content: Normal thought content present Insight: Fair insight present (Psych) Judgement: Fair judgement present (Psych) Office Procedures Post Void Residual Post Residual Void Post Void Residual (PVR): 63 [id number] Void Residual by ultrasound Results AMB Urinalysis, Automated UA Leukoctes 0 Miki/uL Last Edit by Armani Simms on 05/08/24 10:54 UA Nitrite Negative Last Edit by Armani Simms on 05/08/24 10:54 UA Urobilinogen 0.2 mg/dL Last Edit by Ellisyce Bress on 05/08/24 10:54 UA Protein 15 mg/dL Last Edit by Brandyce Bress on 05/08/24 10:54 UA pH 6.0 Last Edit by Brandyce Bress on 05/08/24 10:54 UA Blood 0 Jose/uL Last Edit by Brandyce Bress on 05/08/24 10:54 UA Specific [place] 1.025 Last Edit by Brandyce Bress on 05/08/24 10:54 UA Ketone Last Edit by Brandyce Bress on 05/08/24 10:54 UA Bilirubin 0 mg/dL Last Edit by Brandyce Bress on 05/08/24 10:54 UA Glucose 0 mg/dL Last Edit by Brandyce Bress on 05/08/24 10:54 Quality Reporting (2019) Adult ([facility] 138/07/29/68) Smoking risk assessment performed?: Yes Patient Tobacco Use Status: Never used Tobacco Results Reviewed Results Reviewed: Laboratory Last Values Urine pH (Auto) 6.0 05/08/24 10:53 Specific [place] (Auto) 1.025 05/08/24 10:53 Urine Protein (Auto) 15 mg/dL 05/08/24 10:53 Glucose (UA)(Auto) 0 mg/dL 05/08/24 10:53 Urine Blood (Auto) 0 Jose/uL 05/08/24 10:53 Urine Nitrite (Auto) Negative 05/08/24 10:53 Urine Bilirubin (Auto) 0 mg/dL 05/08/24 10:53 Urine Urobilinogen (Auto) 0.2 mg/dL 05/08/24 10:53 Leukocyte Esterase (Auto) 0 Miki/uL 05/08/24 10:53 Assessment & Plan Assessment & Plan (1) Enlarged prostate: Comment: ABD CT: Prostate gland is enlarged, measuring 5.3 cm in diameter with dystrophic central calcifications. Code(s): N40.0 - Benign prostatic hyperplasia without lower urinary tract symptoms Category: Medical (2) BPH (benign prostatic hyperplasia): Code(s): N40.0 - Benign prostatic hyperplasia without lower urinary tract symptoms Category: Medical (3) Balanitis: Code(s): N48.1 - Balanitis Category: Medical Plan In office urinalysis results reviewed with the patient today; as noted above. PVR 63 mL Continue Flomax as discussed and prescribed; refill provided We discussed importance of managing diabetes for improvement in urological issues as well as overall health and well-being. Recent PSA results reviewed with the patient today; as noted above. Discussed proper care of area. We discussed further treatment options of recurrent balanitis. Follow-up in 1 year with PSA and PVR; or sooner with any issues, concerns, and or questions. Orders: Orders AMB Urinalysis Automated Today Z13.9 - Encounter for screening, unspecified AMB Post Void Residual by ultrasound Today N40.0 - Benign prostatic hyperplasia without lower urinary tract symptoms Prostate Specific Antigen 1 Year N40.0 - Benign prostatic hyperplasia without lower urinary tract symptoms Medications: Refilled clotrimazole-betamethasone 1-0.05 % Apply thin coat 2 times per day 1 appl topical BID 45 grams 0RF 4 weeks N48.1 - Balanitis tamsulosin 0.4 mg PO BEDTIME 90 caps 3RF 90 days N40.1 - Benign prostatic hyperplasia with lower urinary tract symptoms, R35.1 - Nocturia Patient Instructions: The patient had an opportunity to ask questions regarding the treatment plan. All questions were answered. Physical exam, labs, and imaging were discussed and reviewed in detail. As well as risks, benefits, and discussion of treatment choices. No major barriers to understanding were identified. The patient exp ressed understanding and agreement with the above treatment plan. The patient was made aware they should contact our office by phone for worsening of their current condition, the appearance of new symptoms, or with any questions or concerns. Compliance is encouraged with any medications and follow up testing that is ordered. It is a privilege to be allowed the opportunity to participate in? your urological care.? Again, if you have any questions or concerns If you have any questions or concerns please do not hesitate to contact me. The office is [phone]. This note is constructed using voice recognition software. While every effort has been made to ensure accuracy splunk consultant errors may have been included. Yours sincerely, HEIKE Ma Coding Level of Care Code Est Pt Level 3 (68642) Complex EM visit Add On G2211 Diagnoses Enlarged prostate N40.0 BPH (benign prostatic hyperplasia) N40.0 Balanitis N48.1 CPT Codes Post Residual Void - PVR CPT Code: 29909-Edgd Void Residual by ultrasound ([id number])
== END 2024-05-08 11:00 | disposition home or self-care (01) ==
PROVIDERS: PCP Internal Medicine; Visit Provider Nurse Practitioner Family
DX: N40.0 Benign prostatic hyperplasia without lower urinary tract symptoms (principal); N48.1 Balanitis; Z13.9 Encounter for screening, unspecified
CPT/HCPCS: 99213; G2211

== ENCOUNTER → 2024-05-08 10:05 | Outpatient (BNVA) | payer OTHER, SELFPAY | PROVIDERS: PCP Internal Medicine; Visit Provider Nurse Practitioner Family | DX: N40.0 Benign prostatic hyperplasia without lower urinary tract symptoms (principal); N48.1 Balanitis; E11.9 Type 2 diabetes mellitus without complications | CPT/HCPCS: 51798; 81003; 99212 ==